=== PATIENT | female | born 1945 | race Caucasian/White ===

== ENCOUNTER 2019-10-17 09:58 | Outpatient (CLI) | payer MEDICARE, OTHER, SELFPAY ==
--- NOTE | ~2019-10-17 | XR_ITS ---
EXAMINATION: XR chest 2V DATE: 10/17/2019 11:05 INDICATION: Hypertension. Preop. TECHNIQUE: Frontal and lateral views of the chest were obtained. COMPARISON: None. FINDINGS: The chest demonstrates clear lungs without pneumonia, pleural effusion, or pneumothorax. Th e heart size is normal. Surgical clips in the right upper quadrant are likely from cholecystectomy. T here is a compression fracture in mid thoracic spine, likely chronic. IMPRESSION: 1. No acute cardiopulmonary disease. Reviewed, dictated and finalized at location B.
--- NOTE | 2019-10-17 10:40 | ECG_ITS ---
Measurements Intervals [place] Rate: 60 P: 36 CA: 182 QRS: 4 QRSD: 102 T: 34 QT: 432 QTc: 432 Interpretive Statements SINUS RHYTHM BORDERLINE R WAVE PROGRESSION, ANTERIOR LEADS BASELINE ARTIFACT- I, II, III, AVR, AVL, AVF BORDERLINE ECG Electronically Signed On 10-17-2019 11:20:08 CDT by Stanley Dyer D.O.
[2019-10-17 11:14] LABS: Basophils Absolute Auto 0.1 K/mm3 (0.0-0.1); Basophils Percent Auto 0.9 % (0.2-1.2); Eosinophils Absolute Auto 0.2 K/mm3 (0-0.3); Eosinophils Percent Auto 3.3 % (0-4.4); Hematocrit 41.5 % (37.0-47.0); Hemoglobin 13.7 g/dL (12.0-15.0); Immature Granulocyte Absolute 0.02 K/mm3 (0.00-0.031); Immature Granulocyte Percent A 0.3 % (0-0.5); Lymphocytes Absolute Auto 1.74 K/mm3 (0.9-3.2); Lymphocytes Percent Auto 25.1 % (18.3-44.2); Mean Corpuscular Hemoglobin 28.8 pg (26-34); Mean Corpuscular Volume 87.4 fl (80-100); Mean Platelet Volume 10.3 fl (7.4-10.4); Monocytes Absolute Auto 0.6 K/mm3 (0.1-0.6); Monocytes Percent Auto 9.2 % (2.6-8.5); Neutrophils Absolute Auto 4.2 K/mm3 (1.3-6.7); Neutrophils Percent Auto 61.2 % (45.5-73.1); Platelet Count Result 285 k/mm3 (150-375); Red Blood Count 4.75 M/mm3 (4.2-5.4); Red Cell Distribution Width 13.2 % (11.5-14.5); White Blood Count 6.9 K/mm3 (4.5-10.0)
[2019-10-17 11:23] LABS: Albumin Level 4.5 g/dL (3.5-5.1); Anion Gap 9 mmol/L (8-16); Blood Urea Nitrogen 18 mg/dL (7-17); Calcium 9.4 mg/dL (8.4-10.2); Carbon Dioxide 32 mmol/L (22-30); Chloride 93 mmol/L (98-107); Estimated Glomerular Filt Rate > 60; Glucose 114 mg/dL (65-105); Potassium 3.2 mmol/L (3.4-5.0); Sodium 134 mmol/L (137-145)
[2019-10-17 11:34] LABS: Urine Cotinine NEGATIVE
== END 2019-10-17 09:59 | disposition home or self-care (01) ==
PROVIDERS: PCP Family Medicine; Visit Provider Orthopaedic Surgery
DX: M19.90 Unspecified osteoarthritis, unspecified site (principal); Z01.818 Encounter for other preprocedural examination; I10 Essential (primary) hypertension; E87.6 Hypokalemia
CPT/HCPCS: 71046; 80048; 80307; 82040; 83036; 85025; 87070; 93005

== ENCOUNTER 2019-11-02 00:24 | Outpatient (CLI) | payer MEDICARE, OTHER, SELFPAY ==
[2019-11-03 13:40] LABS: SARS-CoV-2 RNA PCR Negative
== END 2019-11-02 00:25 | disposition home or self-care (01) ==
LOC: ANHCOVIDDT 00:24
PROVIDERS: PCP Family Medicine; Visit Provider Orthopaedic Surgery
DX: Z01.812 Encounter for preprocedural laboratory examination (principal); Z11.59 Encounter for screening for other viral diseases
CPT/HCPCS: 87635; C9803; U0003

== ENCOUNTER 2019-11-02 08:33 | Outpatient (CLI) | payer MEDICARE, OTHER, SELFPAY ==
[2019-11-02 09:19] LABS: Anion Gap 10 mmol/L (8-16); Blood Urea Nitrogen 19 mg/dL (7-17); Calcium 9.5 mg/dL (8.4-10.2); Carbon Dioxide 27 mmol/L (22-30); Chloride 100 mmol/L (98-107); Estimated Glomerular Filt Rate > 60; Glucose 130 mg/dL (65-105); Potassium 3.6 mmol/L (3.4-5.0); Sodium 137 mmol/L (137-145)
== END 2019-11-02 08:34 | disposition home or self-care (01) ==
LOC: ANHLAB 08:35
PROVIDERS: PCP Family Medicine; Visit Provider Family Medicine
DX: E87.6 Hypokalemia (principal)
CPT/HCPCS: 36415; 80048; 87635; C9803; U0003

== ENCOUNTER 2019-11-05 01:25 | Day surgery (SDC) | payer MEDICARE, OTHER, SELFPAY ==
[2019-10-17 10:09] VITALS: BP 143/69; PULSE 66; RESP 16; TEMP 36.7; O2SAT 96; BMI 36.4
--- NOTE | 2019-11-02 08:59 | PM.IMHP ---
H&P: HPI History of Present Illness Date/Time: 11/02/19 08:59 <SUE Brody - Last Filed: 11/02/19 09:06> Chief complaint: Severe OA Right Knee <SUE Brody - Last Filed: 11/02/19 09:06> Narrative: Karen King is a 74 year old female Of who presents today for a right total knee arthroplasty. She is having pain in this knee for years. Both her knees bother her regularly but the right is worse than the left with regard to the pain. She has tried taking anti-inflammatories, Aleve, as well as had had injections in the past. She has reached a point where her symptoms are rather severe on a daily basis and she would rather proceed with total knee arthroplasty rather continue nonsurgical treatment. <SUE Brody - Last Filed: 11/02/19 09:06> [facility] Past Medical History Medical History: Medical History Breast cancer Essential (primary) hypertension Nonrheumatic mitral (valve) insufficiency Scarring of lung <SUE Brody - Last Filed: 11/02/19 09:06> Family History Family History: Family History Mother Family history of Alzheimer's disease Father Family history of diabetes mellitus in first degree relative Patient's father is Acute myocardial infarction Diabetes mellitus Family history of cardiovascular disease <SUE Brody - Last Filed: 11/02/19 09:06> Social History Social History: Social History Smoking status: Never smoker Alcohol intake: never Living arrangements: with family Spiritual care concerns: No <SUE Brody - Last Filed: 11/02/19 09:06> Meds Home Medications and Allergies Home medications: Home Medications Medication Instructions Recorded Confirmed Type anastrozole 1 mg PO HS 10/17/19 11/05/19 History atenolol 50 mg PO HS 10/17/19 11/05/19 History cholecalciferol (vitamin D3) 50 mcg PO HS 10/17/19 11/05/19 History [Vitamin D3] furosemide 40 mg PO HS 10/17/19 11/05/19 History naproxen sodium [Aleve] 220 mg PO BID PRN 10/17/19 11/05/19 History triamterene-hydrochlorothiazid 1 tablet PO HS 10/17/19 11/05/19 History potassium chloride 20 mEq 20 meq PO DAILY #60 tablet 10/22/19 10/22/19 Rx tablet,extended release <SUE Brody - Last Filed: 11/02/19 09:06> Allergies/Adverse reactions: Allergies Allergy/AdvReac Type Severity Reaction Status Date / Time ibuprofen Allergy Severe kidney Verified 11/05/19 06:26 shuts down <SUE Brody - Last Filed: 11/02/19 09:06> Exam Narrative: Exam Narrative: 74-year-old female very alert pleasant no distress. She is 5 ft 2 and 210 lb. Her right knee range of motion is from 18-90 degrees. Has no definite effusion right knee. She has severe medial joint line tenderness the right knee, lateral joint line tenderness is moderate, mild patellofemoral pain with grind. She has normal stability both AP and mediolateral in the knee. Hip range of motion is full without discomfort on the right. Stinchfield maneuver is negative. Normal quad strength, 2+ dorsalis pedis and posterior tibial pulse. No edema in either lower extremity. Skin is all normal. <SUE Brody - Last Filed: 11/02/19 09:06> HENMT: Head: normal to inspection <SUE Brody Last Filed: 11/02/19 09:06> Resp: Auscultation: clear to auscultation bilaterally <SUE Brody Last Filed: 11/02/19 09:06> Cardio: Rhythm: regular rhythm <SUE Brody Last Filed: 11/02/19 09:06> Assessment and Plan Additional Plan Patient has severe arthritis of the right knee with continued symptoms. Again she would like proceed with total knee arthroplasty. Surgical procedures well as the risks and complications were discussed all questions were answered and we wi
[2019-11-05] VITALS (13 sets, daily range): BP systolic 118–148; BP diastolic 52–72; PULSE 77–95; RESP 14–20; TEMP 36.1–37.3; O2SAT 93–99; BMI 36.0
--- NOTE | ~2019-11-05 | XR_ITS ---
EXAMINATION: XR knee RT 2V DATE: 11/05/2019 11:11 CDT INDICATION: Right total knee arthroplasty TECHNIQUE: 2 views right knee FINDINGS: There is a right total knee arthroplasty in expected position. Subcutaneous gas with fluid and air in the joint and overlying skin garrison are consistent with recent surgery. No evidence of p eriprosthetic fracture. IMPRESSION: 1. Recent right total knee arthroplasty. Reviewed, dictated and finalized at location B.
--- NOTE | 2019-11-05 07:07 | WPDANESEPPF ---
Anes - Initial Pre Proc Eval Procedure: Operation Date: 11/05/19 07:30 Proposed Procedures p Right Total Knee Arthroplasty - Keyon Monroe MD Date/Time: 11/05/19 07:07 Surgeon: Keyon Monroe MD Pre Op Diagnosis: Severe OA Right Knee Patient Data Age: 74 Gender: F Height: 5 ft 4 in Weight: 95.3 kg Last Vital Signs Temp 36.7 C 10/17/19 10:09 Pulse 66 10/17/19 10:09 Resp 16 10/17/19 10:09 BP 143/69 H 10/17/19 10:09 Pulse Ox 96 10/17/19 10:09 Allergies Allergy/AdvReac Type Severity Reaction Status Date / Time ibuprofen Allergy Severe kidney Verified 11/05/19 06:26 shuts down Home Medications Medication Instructions Recorded Confirmed Type anastrozole 1 mg PO HS 10/17/19 11/05/19 History atenolol 50 mg PO HS 10/17/19 11/05/19 History cholecalciferol (vitamin D3) 50 mcg PO HS 10/17/19 11/05/19 History [Vitamin D3] furosemide 40 mg PO HS 10/17/19 11/05/19 History naproxen sodium [Aleve] 220 mg PO BID PRN 10/17/19 11/05/19 History triamterene-hydrochlorothiazid 1 tablet PO HS 10/17/19 11/05/19 History potassium chloride 20 mEq 20 meq PO DAILY #60 tablet 10/22/19 10/22/19 Rx tablet,extended release Patient hx anesthesia problems: post op nausea/vomiting Family hx anesthesia problems: none PMFSH Past Medical History Medical History Breast cancer Essential (primary) hypertension Nonrheumatic mitral (valve) insufficiency Scarring of lung Family History Family History Mother Family history of Alzheimer's disease Father Family history of diabetes mellitus in first degree relative Patient's father is Acute myocardial infarction Diabetes mellitus Family history of cardiovascular disease Social History Social History Smoking status: Never smoker Alcohol intake: never Living arrangements: with family Spiritual care concerns: No Anes - Eval Final PreProcedure Day of Procedure 11/05/19 07:07 Patient weight: obese Heart: regular rate and rhythm Lungs: clear to auscultation Airway: Mallampati scale class II Neurological: alert and oriented Last oral intake: >/= 8 hours ASA classification: III Emergent: no Anesthetic plan: proceed Anesthesia type and monitoring: general LMA and standard monitoring Informed Consent: The patient's anesthetic plan and its attendant risks and benefits were discussed with the patient/family/POA. Questions were solicited and answers provided to the satisfaction of the patient/family/POA.
[2019-11-05] MEDS: LACTATED RINGERS 1,000 ML 30 ML IV CONT (07:14)
[2019-11-05] MEDS: TRANEXAMIC ACID 1,000MG/ISO100 1,000 MG/100 ML BAG 200 MG IVPB (07:15)
[2019-11-05] MEDS: ACETAMINOPHEN 500 MG TABLET 1000 MG PO ×3 (07:15→18:46)
--- NOTE | 2019-11-05 07:17 | WPDHPUPDATE1 ---
History and Physical Update Update Date/Time: 11/05/19 07:17 History and Physical has been reviewed, including an updated exam of the patient. There are NO changes in the patient's condition. Risks, benefits, and alternatives have been discussed and questions answered. Patient agrees to proceed with procedure.
[2019-11-05] MEDS: KETOROLAC 15 MG/ML VIAL (*BKC) IV PUSH (07:21)
[2019-11-05] MEDS: ceFAZolin 2 GM/D5W 50 ML 2 GM/50 ML BAG IVPB (07:48)
[2019-11-05] MEDS: GENTAMICIN BONE CEMENT REFOBACIN 1 EACH TOPICAL (07:54)
--- NOTE | 2019-11-05 07:54 | SUR.PREOP ---
0718; DR BURKETT ORDERED IV TORADOL. STATES HE IS AWARE OF IBUPROFEN ALLERGY, IT WAS A TAKEN TO MUCH SITUATION .
[2019-11-05] MEDS: ceFAZolin SODIUM 1 GM VIAL 3 GM IRRIGATION (07:55)
[2019-11-05] MEDS: ceFAZolin SODIUM 1 GM VIAL IV PUSH (09:43)
[2019-11-05] MEDS: TRANEXAMIC ACID 1,000 MG/10 ML AMPUL 1000 MG IV PUSH (09:45)
--- NOTE | 2019-11-05 10:21 | PM.PROC ---
Procedure Note - Detailed Date of procedure: 11/05/19 Pre-op diagnosis: Severe OA Right Knee Post-op diagnosis: same Procedure performed: Right total knee arthroplasty Description of procedure: Patient was brought to the operating room and general anesthesia was administered. She received 2 g of Ancef weight based vancomycin 1 g of tranexamic acid IV preoperatively. The right leg was prepped draped usual fashion. Under anesthesia she had of flexion contracture between 15 and 18? and she flexed to 100 passively. Her BMI is 38.4 and because of her obesity and stiffness this added extra difficulty to the procedure accounting for approximately 40 minutes of surgical time. Limb was exsanguinated and tourniquet elevated to 300 mmHg. A 7 in longitudinal incision was made and a vastus medialis splitting approach utilized. Infrapatellar and suprapatellar fat pads were excised the quadriceps synovectomy carried out. Suprapatellar synovial reflections were released to mobilize the quadriceps. The patella measured 22 mm in thickness and was cut to 16 mm osteophytes removed. A protector cap applied. A guide hannah was inserted on femoral canal after aspiration of canal contents using the 5 degree valgus cutting bushing 11 mm of bone removed the distal femur. Next the tibial plateau was cut and we made a skim cut off the sclerotic portion of the medial tibial plateau which removed about 7 or 8 mm laterally. Meniscal remnants were excised and the PCL recessed from the femur. Osteophytes from the posterior medial femoral condyle were removed. The medial side was a tight 8 mm at 90? of flexion lateral side 12 mm. The femoral sizing guide was set at 5? of external rotation which matched [place]ites[place] line exactly. Posterior referencing pin holes were placed. The 62.5 was going to notch. We applied the 65 cutting block and AP and chamfer cuts were made. The 65 trial overhung mm medial and mm lateral. Next the tibia was sized to a size 67. The size 71 would not allow us proper rotation without overhang anteromedially. The 67 tray was pinned the tibia in the proper rotation referenced off medial 1/3 of the tibial tubercle the anterior cortex of the tibia and the 2nd metatarsal. Alignment was confirmed to be perpendicular to the axis of the tibia. The tibia was punched. We removed posteromedial tibial osteophyte at this time and did enough capsule released from the tibia to allow removal of the tibial osteophyte but that is all. We trialed and with the 10 mm insert, the knee lacked about 10? of extension with the tourniquet up and had a little bit of play anterior drawer with the 10 mm insert at 90?. Prior to this I had done a central posterior femoral capsule release and removed the large posterior medial femoral condylar osteophyte which was loose. We removed 2 additional mm of bone from the distal femur at this time. I put a little bit of flexion on the cut also so that the 62.5 femur cutting block could be used without significant notching. AP and chamfer cuts revisited with the 62.5 cutting block. This did not result in any significant notching. There was an excellent fit without overhang on the 62.5 this time. We trialed with the 11 and we still lacked about 4 5? but the tourniquet on the thigh held the femur pushed up into flexion such that it was difficult to assess whether we had a positive bounce test. I lowered the tourniquet and with the thigh in a more horizontal position now we confirmed that there was still a positive bounce test and removed the trial components and we released the posterior femoral capsule medially and laterally up to the medial and lateral insertions of the gastrocnemius. We we placed the trial components and the knee came out to full extension with a negative bounce 2 mm each medial and lateral opening and appropriate stability at 90?. Lug holes in the femur were drilled. The patella was sized to a 31 thin composite patellar thickness was 22 mm
[2019-11-05] MEDS: SODIUM CHLORIDE 0.9% IV 1,000 ML 125 ML IV CONT (12:48)
[2019-11-05] MEDS: SENNA/DOCUSATE SODIUM TABLET 2 TAB PO (16:35)
[2019-11-05] MEDS: APIXABAN 2.5 MG TABLET PO (20:51)
[2019-11-05] MEDS: CHOLECALCIFEROL 1,000 UNITS TABLET 2000 UNITS PO (20:53)
[2019-11-05] MEDS: FAMOTIDINE 20 MG TABLET PO (20:53)
[2019-11-05] MEDS: TRIAMTERENE 37.5 MG/HCTZ 25 MG (MAXZIDE) TABLET 1 TAB PO (20:54)
[2019-11-05] MEDS: atenoloL 50 MG TABLET PO (21:03)
[2019-11-06] MEDS: ACETAMINOPHEN 500 MG TABLET 1000 MG PO ×2 (00:31→06:39)
[2019-11-06 01:38] VITALS: BP 103/50; PULSE 78; RESP 20; TEMP 36.6; O2SAT 96
[2019-11-06 05:29] VITALS: BP 104/49; PULSE 78; RESP 20; TEMP 36.6; O2SAT 96
[2019-11-06 05:45] LABS: Anion Gap 6 mmol/L (8-16); Blood Urea Nitrogen 20 mg/dL (7-17); Calcium 8.5 mg/dL (8.4-10.2); Carbon Dioxide 28 mmol/L (22-30); Chloride 96 mmol/L (98-107); Estimated CRCL calculation 55 ml/min; Estimated Glomerular Filt Rate > 60; Glucose 114 mg/dL (65-105); Potassium 3.5 mmol/L (3.4-5.0); Sodium 130 mmol/L (137-145)
[2019-11-06 06:32] LABS: Basophils Percent Auto 0.2 % (0.2-1.2); Eosinophils Percent Auto 0.1 % (0-4.4); Hematocrit 31.1 % (37.0-47.0); Hemoglobin 10.3 g/dL (12.0-15.0); Immature Granulocyte Absolute 0.06 K/mm3 (0.00-0.031); Immature Granulocyte Percent A 0.5 % (0-0.5); Lymphocytes Absolute Auto 1.41 K/mm3 (0.9-3.2); Lymphocytes Percent Auto 11.3 % (18.3-44.2); Mean Corpuscular HGB Conc 33.1 g/dl (32-36); Mean Corpuscular Hemoglobin 28.9 pg (26-34); Mean Corpuscular Volume 87.4 fl (80-100); Monocytes Absolute Auto 1.3 K/mm3 (0.1-0.6); Monocytes Percent Auto 10.3 % (2.6-8.5); Neutrophils Absolute Auto 9.7 K/mm3 (1.3-6.7); Neutrophils Percent Auto 77.6 % (45.5-73.1); Platelet Count Result 241 k/mm3 (150-375); Red Blood Count 3.56 M/mm3 (4.2-5.4); Red Cell Distribution Width 13.2 % (11.5-14.5); White Blood Count 12.5 K/mm3 (4.5-10.0)
--- NOTE | 2019-11-06 06:40 | PM.PNORT ---
Progress Note: A&P Additional Plan Postop day 1 patient is doing very well. She is having limited pain. She is afebrile vitals signs Have been stable. wound is dry, dressing is intact. She has been up walking with physical therapy yesterday very comfortable with that. She does have her heel lift left shoe is ambulating. Patient has done very well and is anxious to go home today. Will have her do therapy session discharge her after Subjective Subjective Date/Time Seen: 11/06/19 06:40 Objective Data Vital Signs Vital Signs: Vital Signs - 24 hr 11/05/19 06:45 11/05/19 10:46 11/05/19 11:00 Temperature 37.0 C 36.2 C L Pulse Rate 80 81 77 Respiratory Rate 18 14 16 Blood Pressure 148/68 H 129/64 131/69 Pulse Oximetry 97 96 99 11/05/19 11:15 11/05/19 11:30 11/05/19 11:45 Temperature 36.1 C L Pulse Rate 80 77 79 Respiratory Rate 18 16 14 Blood Pressure 133/72 136/71 128/70 Pulse Oximetry 99 95 93 11/05/19 12:20 11/05/19 12:35 11/05/19 13:05 Temperature 36.6 C 36.5 C 36.6 C Pulse Rate 79 78 82 Respiratory Rate 16 17 17 Blood Pressure 120/58 L 136/52 L 127/63 Pulse Oximetry 95 96 95 11/05/19 14:05 11/05/19 18:00 11/05/19 21:03 Temperature 36.6 C 37.3 C Pulse Rate 85 95 88 Respiratory Rate 18 18 Blood Pressure 131/64 118/54 L Pulse Oximetry 96 97 11/05/19 21:38 11/06/19 01:38 11/06/19 05:29 Temperature 36.7 C 36.6 C 36.6 C Pulse Rate 90 78 78 Respiratory Rate 20 20 20 Blood Pressure 123/67 103/50 L 104/49 L Pulse Oximetry 95 96 96 Intake/Output Intake/Output: Intake & Output 11/03/19 11/04/19 11/05/19 11/06/19 23:59 23:59 23:59 23:59 Intake Total 2771 50 Output Total 250 1100 Balance 2521 -1050 Meds/Results Medications: Active Medications Generic Name Dose Route Start Last Admin Trade Name Freq PRN Reason Stop Dose Admin Acetaminophen 1,000 mg 11/05/19 13:00 11/06/19 06:39 Tylenol Tablet PO 1,000 mg Q6H MEL Administration Apixaban 2.5 mg 11/05/19 21:00 11/05/19 20:51 Eliquis PO 11/17/19 09:01 2.5 mg Q12HR MEL Administration Atenolol 50 mg 11/05/19 21:00 11/05/19 21:03 Tenormin PO 50 mg HS MEL Administration Bisacodyl 10 mg 11/05/19 11:53 Dulcolax Suppository RECTAL DAILY PRN Constipation Celecoxib 100 mg 11/06/19 08:00 Celebrex PO DAILY@0800 MEL Diphenhydramine HCl 25 mg 11/05/19 11:53 Benadryl Inj IV PUSH Q6H PRN Itching Famotidine 20 mg 11/05/19 21:00 11/05/19 20:53 Pepcid PO 20 mg Q12HR MEL Administration Furosemide 40 mg 11/05/19 21:00 11/05/19 21:08 Lasix Tablet PO Not Given HS MEL Vancomycin HCl 1,000 mg in 250 mls @ 250 mls/hr 11/05/19 19:00 11/06/19 06:39 Vancomycin 1,000 Mg/D5w 250 Ml IVPB 11/06/19 07:59 250 mls/hr Q12H MEL Administration Cefazolin Sodium 1 gm in 50 mls @ 100 mls/hr 11/05/19 16:00 11/06/19 00:27 Ancef 1 Gm/D5w 50 Ml Pm IVPB 11/06/19 08:29 Infused Q8H MEL Infusion Morphine Sulfate 2 mg 11/05/19 11:53 Morphine Sulfate Inj IV PUSH Q2H PRN Breakthrough pain rated 4-6 Naloxone HCl 0.1 mg 11/05/19 11:53 Narcan IV PUSH Q2M PRN Opiate Reversal Ondansetron HCl 4 mg 11/05/19 11:53 Zofran Inj IV PUSH Q4H PRN Nausea And Vomiting Oxycodone HCl 5 mg 11/05/19 13:00 11/06/19 05:19 Roxicodone Ir Tablet PO 5 mg Q4HR MEL Administration Oxycodone HCl 5 mg 11/05/19 11:53 Roxicodone Ir Tablet PO Q4H PRN Pain Rated 4-6 Polyethylene Glycol 17 gm 11/06/19 09:00 Miralax PO QAM MEL Senna/Docusate Sodium 2 tab 11/05/19 17:00 11/05/19 16:35 Senokot S Tablet PO 2 tab BID MEL Administration Triamterene/HCTZ 1 tab 11/05/19 21:00 11/05/19 20:54 Maxzide-25 PO 1 tab HS MEL Administration Vitamin D 2,000 units 11/05/19 21:00 11/05/19 20:53 Vitamin D PO 2,000 units HS MEL Administration Radiology Results:
--- NOTE | 2019-11-06 06:42 | PM.DS ---
DS: Admitting Diagnosis Admitting Diagnosis Admitting Diagnosis: Severe OA Right Knee DS: Summary Time Spent with Patient Time attestation: patient is a 74-year-old female patient who underwent right total knee arthroplasty by Dr. Monroe on 11/04. She underwent the procedure without any complications. Postoperatively she has been afebrile vital signs stable. Neurovascular she is intact, wound is dry has a Mepilex dressing over it. She is weight-bearing as tolerated. She is on Eliquis for 2 weeks followed by aspirin b.i.d. for DVT prophylaxis. She is on schedule Tylenol well as oxycodone 5 for pain control she is also on Celebrex 100 mg daily. she will be discharged to home on 11/05 cautious outpatient therapy starting on . She will also go on MiraLax and Senokot constipation. Patient was advised to keep leg elevated and swelling also do exercises a regular basis during the day. She was advised she had a very stiff knee prior to surgery and this is going need a lot of hard work with physical therapy exercises back and she is of that. Beatriz positive questions concerns she should Petterchak was seen appointment date. DS: Data Data Completed and Pending Labs on day of discharge: Labs from last 24 hours 11/06/19 11/06/19 11/05/19 06:12 05:16 07:04 WBC 12.5 H RBC 3.56 L Hgb 10.3 L D Hct 31.1 L MCV 87.4 MCH 28.9 MCHC 33.1 RDW 13.2 Plt Count 241 MPV 10.0 Immature Gran % (Auto) 0.5 Neut % (Auto) 77.6 H Lymph % (Auto) 11.3 L [place] % (Auto) 10.3 H Eos % (Auto) 0.1 Baso % (Auto) 0.2 Lymph # (Auto) 1.41 [place] # (Auto) 1.3 H Eos # (Auto) 0.0 Baso # (Auto) 0.0 Abs Immat Gran (auto) 0.06 H Absolute Neuts (auto) 9.7 H Absolute Nucleated RBC 0.0 Nucleated RBC % 0.0 Sodium 130 L Potassium 3.5 Chloride 96 L Carbon Dioxide 28 Anion Gap 6 L BUN 20 H Creatinine 0.90 Estim Creat Clear Calc 55 Estimated GFR > 60 Glucose 114 H Calcium 8.5 Blood Type A Negative Antibody Screen Negative Discharge Plan Discharge Patient Disposition: Home, Self-Care Patient Instructions: Apixaban (By mouth) Discharge Medications: No Action anastrozole 1 mg tablet 1 mg PO HS RF: 0 Hold Instructions: Total Knee Replacement naproxen sodium [Aleve] 220 mg Tablet 220 mg PO BID PRN (Reason: Pain) RF: 0 cholecalciferol (vitamin D3) [Vitamin D3] 50 mcg (2,000 unit) Capsule 50 mcg PO HS RF: 0 furosemide 40 mg tablet 40 mg PO HS RF: 0 atenolol 100 mg tablet 50 mg PO HS RF: 0 triamterene-hydrochlorothiazid 37.5-25 mg tablet 1 tablet PO HS RF: 0 potassium chloride 20 mEq tablet extended release 20 meq PO DAILY Qty: 60 RF: 1
[2019-11-06] MEDS: APIXABAN 2.5 MG TABLET PO (08:02)
[2019-11-06] MEDS: CELECOXIB 100 MG CAPSULE PO (08:02)
[2019-11-06] MEDS: FAMOTIDINE 20 MG TABLET PO (08:03)
[2019-11-06] MEDS: polyethylene glycoL 3350 17 GM POWD.PACK PO (08:03)
[2019-11-06] MEDS: SENNA/DOCUSATE SODIUM TABLET 2 TAB PO (08:04)
--- NOTE | 2019-11-06 09:19 | P.PNAN_ITS ---
Anes - Prog Note Post-Op Date/Time: 11/06/19 09:19 Cardiovascular status: normal Respiratory status: normal Airway patency: baseline Mental status: baseline Post-Op hydration status: normal Vital Signs: Last Vital Signs Temp 36.6 C 11/06/19 05:29 Pulse 78 11/06/19 05:29 Resp 20 11/06/19 05:29 BP 104/49 L 11/06/19 05:29 Pulse Ox 96 11/06/19 05:29 Pain Score (VAS): 0 I/O: Intake & Output 11/05/19 11/06/19 11/06/19 23:59 07:59 15:59 Intake Total 1221 300 240 Output Total 1100 Balance 1221 -800 240 Laboratory Tests 11/06/19 06:12 11/06/19 05:16 11/05/19 11/06/19 11/06/19 07:04 05:16 06:12 WBC 12.5 H RBC 3.56 L Hgb 10.3 L D Hct 31.1 L MCV 87.4 MCH 28.9 MCHC 33.1 RDW 13.2 Plt Count 241 MPV 10.0 Immature Gran % (Auto) 0.5 Neut % (Auto) 77.6 H Lymph % (Auto) 11.3 L [place] % (Auto) 10.3 H Eos % (Auto) 0.1 Baso % (Auto) 0.2 Lymph # (Auto) 1.41 [place] # (Auto) 1.3 H Eos # (Auto) 0.0 Baso # (Auto) 0.0 Abs Immat Gran (auto) 0.06 H Absolute Neuts (auto) 9.7 H Absolute Nucleated RBC 0.0 Nucleated RBC % 0.0 Sodium 130 L Potassium 3.5 Chloride 96 L Carbon Dioxide 28 Anion Gap 6 L BUN 20 H Creatinine 0.90 Estim Creat Clear Calc 55 Estimated GFR > 60 Glucose 114 H Calcium 8.5 Blood Type A Negative Antibody Screen Negative Post-procedural complaints: none Patient Feedback: Patient satisfied with anesthetic care.
[2019-11-06 10:00] VITALS: BP 102/44; PULSE 60; RESP 15; TEMP 37.1; O2SAT 98
[2019-11-06 10:29] VITALS: O2SAT 95
--- NOTE | 2019-11-06 10:30 | PC.NURSE ---
Patient declined flu shot at discharge
== END 2019-11-06 10:30 | disposition home or self-care (01) ==
LOC: ANHSURGERY 06:02 → ANH2MED 12:10
PROVIDERS: Physician Assistant Surgical; PCP Family Medicine; Visit Provider Orthopaedic Surgery
PROC: (CPT 27447; principal; 2019-11-05 07:30)
DX: M17.11 Unilateral primary osteoarthritis, right knee (principal); I10 Essential (primary) hypertension; I34.0 Nonrheumatic mitral (valve) insufficiency; Z85.3 Personal history of malignant neoplasm of breast; Z79.811 Long term (current) use of aromatase inhibitors; E66.9 Obesity, unspecified; Z68.36 Body mass index [BMI] 36.0-36.9, adult
CPT/HCPCS: 27447; 36415; 73560; 80048; 85025; 86850; 86900; 86901; 97110; 97116; 97161; 97165; 97530; A9270; C1713; C1776; J0171; J0690; J1100; J1170; J1885; J2250; J2270; J2405; J2704; J2795; J3010; J3370; J7030; J7120

== ENCOUNTER 2020-04-29 08:02 | Outpatient (CLI) | payer MEDICARE, OTHER, SELFPAY ==
[2020-04-29 10:15] LABS: Albumin Level 4.5 g/dL (3.5-5.1)
[2020-04-29 10:32] LABS: Hemoglobin A1C 5.5 % (<5.7)
[2020-04-29 12:00] LABS: Urine Cotinine NEGATIVE
== END 2020-04-29 08:03 | disposition home or self-care (01) ==
LOC: ANHSURGERY 08:04
PROVIDERS: PCP Family Medicine; Visit Provider Orthopaedic Surgery
DX: M17.12 Unilateral primary osteoarthritis, left knee (principal); Z01.812 Encounter for preprocedural laboratory examination
CPT/HCPCS: 80307; 82040; 83036; 87070

== ENCOUNTER → 2020-05-10 01:06 | Outpatient (CLI) | payer MEDICARE, OTHER, SELFPAY ==
[2020-05-10 19:13] LABS: SARS-CoV-2 RNA PCR Negative
== END ==
PROVIDERS: PCP Family Medicine; Visit Provider Orthopaedic Surgery
DX: Z01.812 Encounter for preprocedural laboratory examination (principal); Z20.822 Contact with and (suspected) exposure to COVID-19
CPT/HCPCS: C9803; U0003; U0005

== ENCOUNTER 2020-05-14 02:46 | Day surgery (SDC) | payer MEDICARE, OTHER, SELFPAY ==
[2020-04-29 08:20] VITALS: BP 130/67; PULSE 64; RESP 16; TEMP 36.7; O2SAT 94; BMI 34.7
--- NOTE | 2020-05-12 12:04 | PM.IMHP ---
H&P: HPI History of Present Illness Date/Time: 05/12/20 12:04 74 y/o patient of Dr. Alves.She presents today for a left total knee arthroplasty. Patient underwent right total knee arthroplasty last October. She is very happy with her results. Her left knee continues to be very problematic and painful for her. She does have [id number] arthritis in the medial compartment of left knee. She has a flexion contracture with minimal flexion as well. She feels that she has recovered well from the right total knee and is ready proceed with the left. <SUE Brody - Last Filed: 05/12/20 12:09> Chief Complaint: Left knee DJD <SUE Brody - Last Filed: 05/12/20 12:09> Review of Systems Review of Systems: All systems reviewed & are unremarkable except as noted in HPI and below <SUE Brody - Last Filed: 05/12/20 12:09> [facility] Past Medical History Medical History: Medical History Breast cancer Essential (primary) hypertension Nonrheumatic mitral (valve) insufficiency Scarring of lung <SUE Brody - Last Filed: 05/12/20 12:09> Surgical History Surgical History: Surgical History (Updated 05/14/20 @ 08:30 by Barrera Mejia DO) H/O total knee replacement History of cholecystectomy History of hysterectomy <SUE Brody - Last Filed: 05/12/20 12:09> Family History Family History: Family History Mother Family history of Alzheimer's disease Father Family history of diabetes mellitus in first degree relative Patient's father is Acute myocardial infarction Diabetes mellitus Family history of cardiovascular disease <SUE Brody - Last Filed: 05/12/20 12:09> Social History Social History: Social History Smoking status: Never smoker Second hand tobacco smoke exposure: Yes (father was a smoker) Alcohol intake: never Substance use: never Living arrangements: with family Additional living arrangements comments: [facility]ILDR[facility] Gender identity (if verbalized by the patient): Female Spiritual care concerns: No <SUE Brody - Last Filed: 05/12/20 12:09> Meds Home Medications and Allergies Home medications: Home Medications Medication Instructions Recorded Confirmed Type atenolol 50 mg PO HS 10/17/19 05/14/20 History cholecalciferol (vitamin D3) 50 mcg PO HS 10/17/19 05/14/20 History [Vitamin D3] furosemide 40 mg PO HS PRN 10/17/19 05/14/20 History triamterene-hydrochlorothiazid 1 tablet PO HS 10/17/19 05/14/20 History acetaminophen 1,000 mg PO Q6H PRN 04/29/20 05/14/20 History naproxen sodium [Aleve] 440 mg PO BID PRN 04/29/20 05/14/20 History potassium chloride 20 meq PO DAILY PRN 04/29/20 05/14/20 History <SUE Brody - Last Filed: 05/12/20 12:09> Allergies/Adverse reactions: Allergies Allergy/AdvReac Type Severity Reaction Status Date / Time ibuprofen AdvReac Severe kidney Verified 05/14/20 10:26 shut down 1997 <SUE Brody - Last Filed: 05/12/20 12:09> Exam Narrative: Exam Narrative: 74-year-old female very alert pleasant. She is 5 ft 2 in and 210 lb. Her left knee range of motion is from 15-90 degrees. There is no effusion. Moderately severe tenderness over the medial joint line. Normal AP and mediolateral stability. Hip range motion is full without discomfort negative Stinchfield maneuver. Normal quad strength. 2+ dorsalis pedis and posterior tibial pulse. Normal sensation left lower extremity. <SUE Brody - Last Filed: 05/12/20 12:09> Resp: Auscultation: clear to auscultation bilaterally <SUE Brody Last Filed: 05/12/20 12:09> Cardio: Rate: regular rate <SUE Brody Last Filed: 05/12/20 12:09> Rhythm: regular rhythm <SUE Brody - Last Filed:
[2020-05-14] VITALS (15 sets, daily range): BP systolic 127–148; BP diastolic 60–77; PULSE 66–103; RESP 14–18; TEMP 36.1–36.7; O2SAT 94–100
--- NOTE | ~2020-05-14 | XR_ITS ---
EXAMINATION: XR knee LT 2V DATE: 05/14/2020 16:44 INDICATION: Postoperative evaluation following left total knee arthroplasty. TECHNIQUE: Anteroposterior and lateral views of the left knee were obtained. COMPARISON: None. FINDINGS: Left total knee arthroplasty with patellar resurfacing appears well seated and in near anatomic align ment. No fractures identified. Skin expected postoperative subcutaneous and intra-articular gas. IMPRESSION: 1. Left total knee arthroplasty, negative for postoperative purposes. Reviewed, dictated and finalized at location A.
--- NOTE | 2020-05-14 08:29 | WPDANESEPPF ---
Anes - Initial Pre Proc Eval Procedure: Operation Date: 05/14/20 12:00 Proposed Procedures p Left Total Knee Arthroplasty - Keyon Monroe MD Date/Time: 05/14/20 08:29 Surgeon: Keyon Monroe MD Pre Op Diagnosis: OA Left Knee Patient Data Age: 74 Gender: F Height: 1.63 m Weight: 91.8 kg Last Vital Signs Temp 36.7 C 04/29/20 08:20 Pulse 64 04/29/20 08:20 Resp 16 04/29/20 08:20 BP 130/67 04/29/20 08:20 Pulse Ox 94 04/29/20 08:20 Allergies Allergy/AdvReac Type Severity Reaction Status Date / Time ibuprofen AdvReac Severe kidney Verified 05/14/20 10:26 shut down 1997 Home Medications Medication Instructions Recorded Confirmed Type atenolol 50 mg PO HS 10/17/19 05/14/20 History cholecalciferol (vitamin D3) 50 mcg PO HS 10/17/19 05/14/20 History [Vitamin D3] furosemide 40 mg PO HS PRN 10/17/19 05/14/20 History triamterene-hydrochlorothiazid 1 tablet PO HS 10/17/19 05/14/20 History acetaminophen 1,000 mg PO Q6H PRN 04/29/20 05/14/20 History naproxen sodium [Aleve] 440 mg PO BID PRN 04/29/20 05/14/20 History potassium chloride 20 meq PO DAILY PRN 04/29/20 05/14/20 History Patient hx anesthesia problems: none Family hx anesthesia problems: none PMFSH Past Medical History Medical History Breast cancer Essential (primary) hypertension Nonrheumatic mitral (valve) insufficiency Scarring of lung Surgical History Surgical History (Updated 05/14/20 @ 08:30 by Barrera Mejia DO) H/O total knee replacement History of cholecystectomy History of hysterectomy Family History Family History Mother Family history of Alzheimer's disease Father Family history of diabetes mellitus in first degree relative Patient's father is Acute myocardial infarction Diabetes mellitus Family history of cardiovascular disease Social History Social History (Reviewed 05/12/20 @ 12:06 by LAZARUS Brody Smoking status: Never smoker Second hand tobacco smoke exposure: Yes (father was a smoker) Alcohol intake: never Substance use: never Living arrangements: with family Additional living arrangements comments: GROWN CHILDREN Gender identity (if verbalized by the patient): Female Spiritual care concerns: No Anes - Eval Final PreProcedure Day of Procedure 05/14/20 08:29 Patient weight: obese Heart: regular rate and rhythm Lungs: clear to auscultation and normal air movement Airway: Mallampati scale class II Neurological: alert and oriented Last oral intake: >/= 8 hours ASA classification: III Emergent: no Anesthetic plan: proceed Anesthesia type and monitoring: general ETT and standard monitoring Informed Consent: The patient's anesthetic plan and its attendant risks and benefits were discussed with the patient/family/POA. Questions were solicited and answers provided to the satisfaction of the patient/family/POA.
[2020-05-14] MEDS: ACETAMINOPHEN 500 MG TABLET 1000 MG PO ×2 (10:40→23:19)
[2020-05-14] MEDS: LACTATED RINGERS 1,000 ML 30 ML IV CONT ×2 (10:45→16:30)
[2020-05-14] MEDS: TRANEXAMIC ACID 1,000MG/ISO100 1,000 MG/100 ML BAG 200 MG IVPB (10:45)
--- NOTE | 2020-05-14 12:03 | WPDHPUPDATE1 ---
History and Physical Update Update Date/Time: 05/14/20 12:03 History and Physical has been reviewed, including an updated exam of the patient. There are NO changes in the patient's condition. Risks, benefits, and alternatives have been discussed and questions answered. Patient agrees to proceed with procedure.
[2020-05-14] MEDS: ceFAZolin 2 GM/D5W 50 ML 2 GM/50 ML BAG IVPB (12:12)
[2020-05-14] MEDS: ceFAZolin SODIUM 1 GM VIAL 3 GM IRRIGATION (13:02)
[2020-05-14] MEDS: GENTAMICIN BONE CEMENT REFOBACIN 1 EACH TOPICAL (14:30)
[2020-05-14] MEDS: ceFAZolin SODIUM 1 GM VIAL IV PUSH (15:24)
[2020-05-14] MEDS: TRANEXAMIC ACID 1,000 MG/10 ML AMPUL 1000 MG IV PUSH (15:24)
--- NOTE | 2020-05-14 16:33 | PM.PROC ---
Procedure Note - Detailed Date of procedure: 05/14/20 Pre-op diagnosis: OA Left Knee Post-op diagnosis: same Procedure performed: Left total knee arthroplasty there was extra difficulty with the procedure due to her obesity and pronounced stiffness in the knee. Description of procedure: Patient was brought to the operating room and general anesthesia was administered the right knee prepped draped usual fashion. Even under anesthesia she had at least a 15 degree flexion contracture and only bent to 90?. She received 2 g of Ancef weight based vancomycin 1 g of tranexamic acid preoperatively. The right leg was prepped draped usual fashion. Limb was exsanguinated tourniquet elevated to 300 mmHg. We had some bleeding through as she is somewhat hypertensive so we increased the tourniquet to 325. An 8 in longitudinal midline incision was used and a standard parapatellar arthrotomy was utilized as her flexion was so limited. The patella had some arthritic changes. It measured 22 mm in thickness was cut to 16 mm. Bone quality was good. Protector cap applied. A guide hannah was inserted down the femoral canal for aspiration of canal contents using the 5 degree valgus cutting bushing 10 mm of bone removed the distal femur. Next the tibial plateau was cut. We found that the stiffness in the knee prevented adequate anterior is a nina of the tibia for visualization show a made a preliminary cut and saw that we needed another 3 mm to get to the base of the area of where the posteromedial aspect of the medial femoral condyle. With this cut completed we had a cut perpendicular to the axis of the tibia. Meniscal remnants were excised and PCL released. Anteromedial osteophytes removed the tibia. The knee was significantly tighter medially and then laterally in extension. At 90? of flexion the knee accepted an 8 mm insert medially that was quite tight and 16 mm on the lateral side where she was apparently quite stretched out. We set the femoral sizing guide to 5? external rotation which matched Whitesides line and AP and chamfer cuts were made for the size 65 which we could tell was a little bit too wide. On trialing the medial side was still firm a tighter than the lateral side. The tibia was sized to a size 67 which was rotated appropriately referenced off the medial 1/3 of the tibial tubercle 2nd metatarsal and anterior cortex of the tibial plateau. This was punched and we trialed with the 10 insert which was a little bit too loose in flexion extension. We trialed with the 12 insert and this was excessively tight medially at 90? with the [place] elevator able to be passed on the lateral side at 90?. Extension was close to ideal. There was some 1 or 2 mm of medial and lateral play little bit more laterally in extension. I felt that the excessive tightness at 90? in the medial side of the joint would not be acceptable. We applied the 62.5 cutting block removing the insertion pin on the medial side to allow us to externally rotate the cutting block little bit more so that we would shaved off additional mm half off the posterior aspect the medial femoral condyle and this cut was made without any notching and we used the threaded pins to stabilize the blocking made all the cuts then again for the 62.5 and this fit nicely line to line medius lateral anterior to posterior. We trialed again and this time the 12 was just a little bit loose in flexion but had much better medial to lateral balance and came to full extension after a central posterior capsule release performed earlier. We trialed with a 13 which had optimal stability at 90? with minimal anterior drawer and 1 mm medial to mm lateral opening and it lacked a few degrees of extension with no play medially or laterally. Therefore additional mm of bone was removed the distal femur chamfer cuts revisited and then trialing the knee now came out to full extension with a negative bounce. Lug holes in the femoral component were drilled.
[2020-05-14] MEDS: fentaNYL CITRATE INJ (*CRX) 100 MCG/2 ML VIAL 25 MCG IV PUSH ×4 (16:34→17:10)
--- NOTE | 2020-05-14 17:39 | ADMGEN ---
This patient, Karen King, was admitted to Medical Room 243-01. Patient/family oriented to hospital policies and general routines including ID bracelet, bed and alarms, visiting hours, pain management, procedures, bathroom and other care routines, personal items, smoking policy, room service/diet, and visiting hours. Information on how to activate the Rapid Response Team has been discussed. Patient/Family are encouraged to report perceived risks to care and to ask questions if they do not understand what they are told or what they should do.
[2020-05-14] MEDS: SODIUM CHLORIDE 0.9% IV 1,000 ML 125 ML IV CONT (18:19)
[2020-05-14] MEDS: oxyCODONE HCL (*CRX) 5 MG TAB IR PO ×2 (18:44→20:04)
[2020-05-14] MEDS: SENNA/DOCUSATE SODIUM TABLET 2 TAB PO (18:44)
[2020-05-14] MEDS: CHOLECALCIFEROL 1,000 UNITS TABLET 2000 UNITS PO (20:03)
[2020-05-14] MEDS: TRIAMTERENE 37.5 MG/HCTZ 25 MG (MAXZIDE) TABLET 1 TAB PO (20:04)
[2020-05-14] MEDS: atenoloL 50 MG TABLET PO (20:04)
--- NOTE | 2020-05-14 22:30 | WPDCN ---
Assessment and Plan Assessment and plan (1) Osteoarthritis of left knee: Code(s): M17.12 - Unilateral primary osteoarthritis, left knee Status: Acute Assessment and Plan: Postoperative day 0, status post left total knee arthroplasty. Wound care and pain control will be deferred to Dr. Monroe as well as DVT prophylaxis. (2) Essential hypertension: Code(s): I10 - Essential (primary) hypertension Status: Acute Assessment and Plan: Blood pressures were reviewed and they have been reasonable postoperatively. Continue antihypertensives and monitor daily. Additional Plan Thank you for allowing us to participate in this patient's care. Please do not hesitate to contact us with any questions. Supervising physician for this medical consultation is Dr. Cathy Nelson. HPI Data of Consult Date/Time: 05/14/20 22:30 Requesting Physician: Keyon Monroe MD Primary Care Provider: Viral Alves MD Consult Narrative Narrative: This is a 74-year-old female status post elective left total knee arthroplasty whom the hospitalist service has been consulted for management of her medical conditions postoperatively. Her medical history is significant for arthritis, hypertension, hyperlipidemia, and breast cancer. She has had pain in both of her knees for quite some time and in fact had her right knee replaced in October 2019 with good results. Unfortunately conservative outpatient treatment has not provide her with longstanding relief of her left knee pain and she elected for replacement today. Her surgery was performed under general anesthesia with no immediate complications documented and an estimated blood loss of 300 milliliters. Postoperatively her pain has been well controlled and she has been able to get up to the chair without issues. She denies paresthesias, skin color, temperature changes distal to the surgical site. She also denies postoperative fever, chills, chest pain, shortness of breath, nausea, and vomiting. Review of Systems Review of Systems: Narrative: Twelve systems were reviewed with pertinent positives and negatives as per HPI. No fever, chills, or sweats. She denies recent cold and flu symptoms. No sick contacts. She denies exposure to those positive for COVID-19. No chest pain or shortness of breath. She denies cough. No nausea, vomiting, or diarrhea. She believes her hypertension is well controlled on her home medications. She is a breast cancer survivor for many years. No personal or family history of venous thromboembolism. Except as documented, all other systems were reviewed and are negative. [facility] Past Medical History Medical History (Updated 05/14/20 @ 22:23 by Shayla Moran PA-C) Cancer of right breast Status post lumpectomy and chemoradiotherapy. Diverticulitis Essential hypertension Hyperlipidemia Irritable bowel syndrome Mitral valve prolapse Surgical History Surgical History (Updated 05/14/20 @ 22:23 by Shayla Moran PA-C) History of arthroplasty of left knee (~05/14/20) History of arthroplasty of right knee (~10/2019) History of arthroscopy of right knee History of cholecystectomy History of hysterectomy History of left breast biopsy Benign pathology. History of lumpectomy of right breast With lymph node sampling for breast cancer. History of repair of rotator cuff Bilateral. Family History Family History Mother Family history of Alzheimer's disease Father Family history of diabetes mellitus in first degree relative Patient's father is Acute myocardial infarction Diabetes mellitus Family history of cardiovascular disease Social History Social History (Updated 05/14/20 @ 23:39 by Shayla Moran PA-C) Social History: Surrogate decision maker: Carolynn Pritchett, daughter. Code status: Full code. Smoking status: Never smoker Second hand to
[2020-05-15] MEDS: oxyCODONE HCL (*CRX) 5 MG TAB IR PO ×4 (00:26→12:18)
[2020-05-15 03:14] VITALS: BP 115/65; PULSE 94; RESP 18; TEMP 36.1; O2SAT 96
[2020-05-15 05:59] LABS: Basophils Percent Auto 0.2 % (0.2-1.2); Hemoglobin 9.6 g/dL (12.0-15.0); Immature Granulocyte Absolute 0.04 K/mm3 (0.00-0.031); Immature Granulocyte Percent A 0.3 % (0-0.5); Lymphocytes Absolute Auto 0.81 K/mm3 (0.9-3.2); Lymphocytes Percent Auto 6.9 % (18.3-44.2); Mean Corpuscular Hemoglobin 26.9 pg (26-34); Mean Platelet Volume 9.9 fl (7.4-10.4); Monocytes Absolute Auto 0.9 K/mm3 (0.1-0.6); Monocytes Percent Auto 7.4 % (2.6-8.5); Neutrophils Percent Auto 85.2 % (45.5-73.1); Platelet Count Result 250 k/mm3 (150-375); Red Blood Count 3.57 M/mm3 (4.2-5.4); Red Cell Distribution Width 13.7 % (11.5-14.5); White Blood Count 11.8 K/mm3 (4.5-10.0)
[2020-05-15 06:07] LABS: Potassium 3.4 mmol/L (3.4-5.0)
[2020-05-15 06:17] LABS: Anion Gap 6 mmol/L (8-16); Blood Urea Nitrogen 13 mg/dL (7-17); Calcium 8.7 mg/dL (8.4-10.2); Carbon Dioxide 29 mmol/L (22-30); Chloride 96 mmol/L (98-107); Estimated CRCL calculation 54 ml/min; Estimated Glomerular Filt Rate > 60; Glucose 116 mg/dL (65-105); Magnesium 1.4 mg/dL (1.6-2.3); Sodium 131 mmol/L (137-145)
[2020-05-15] MEDS: ACETAMINOPHEN 500 MG TABLET 1000 MG PO ×2 (06:49→11:36)
--- NOTE | 2020-05-15 07:16 | PM.PNORT ---
Subjective Subjective Date/Time Seen: 05/15/20 07:16 POD 1 alert avss wd-dry NVI, pt is c/o of some numbness to left hand-first three fingers, noticed this when she woke from surg yesterday, sensation is better this am, able to feel light touch, most likely position during surg, wrist may have been extended, would imagine this will improve, will re-eval when seen in office, pt has been up to restroom several times last night , pain is well controlled. plan to have pt work with PT today then send home this afternoon, labs-noted Objective Data Vital Signs Vital Signs: Vital Signs - 24 hr 05/14/20 10:06 05/14/20 16:30 05/14/20 16:40 Temperature 36.3 C L 36.7 C Pulse Rate 66 89 86 Respiratory Rate 16 16 16 Blood Pressure 138/60 148/64 H 127/68 Pulse Oximetry 99 96 99 05/14/20 16:55 05/14/20 17:10 05/14/20 17:20 Temperature Pulse Rate 86 84 84 Respiratory Rate 14 14 14 Blood Pressure 146/75 H 142/77 H 140/73 Pulse Oximetry 94 98 98 05/14/20 17:27 05/14/20 17:40 05/14/20 17:55 Temperature 36.2 C L 36.2 C L Pulse Rate 83 83 91 Respiratory Rate 14 16 16 Blood Pressure 144/68 H 136/66 Pulse Oximetry 98 96 96 05/14/20 18:25 05/14/20 18:53 05/14/20 19:14 Temperature 36.2 C L 36.3 C L 36.1 C L Pulse Rate 88 87 92 Respiratory Rate 16 16 18 Blood Pressure 138/74 144/71 H 133/62 Pulse Oximetry 94 100 99 05/14/20 20:04 05/14/20 23:14 05/14/20 23:54 Temperature 36.2 C L Pulse Rate 92 103 H Respiratory Rate 16 Blood Pressure 148/72 H Pulse Oximetry 97 96 05/15/20 03:14 Temperature 36.1 C L Pulse Rate 94 Respiratory Rate 18 Blood Pressure 115/65 Pulse Oximetry 96 Intake/Output Intake/Output: Intake & Output 05/12/20 05/13/20 05/14/20 05/15/20 23:59 23:59 23:59 23:59 Intake Total 800 500 Output Total 9447 Balance 800 -1450 Meds/Results Medications: Active Medications Generic Name Dose Route Start Last Admin Trade Name Freq PRN Reason Stop Dose Admin Acetaminophen 1,000 mg 05/15/20 00:00 05/15/20 06:49 Acetaminophen 500 Mg Tablet PO 1,000 mg Q6HR MEL Administration Apixaban 2.5 mg 05/15/20 09:00 Apixaban 2.5 Mg Tablet PO 05/26/20 21:01 Q12HR MEL Atenolol 50 mg 05/14/20 21:00 05/14/20 20:04 Atenolol 50 Mg Tablet PO 50 mg HS MEL Administration Celecoxib 100 mg 05/15/20 08:00 Celecoxib 100 Mg Capsule PO DAILY@0800 MEL Vancomycin HCl 1,000 mg in 250 mls @ 250 mls/hr 05/14/20 23:00 05/15/20 00:20 Vancomycin 1,000 Mg/D5w 250 Ml IVPB 05/15/20 11:59 Infused Q12H MEL Infusion Cefazolin Sodium 1 gm in 50 mls @ 100 mls/hr 05/14/20 20:00 05/15/20 03:23 Ancef 1 Gm/D5w 50 Ml Pm IVPB 05/15/20 12:29 100 mls/hr Q8H MEL Administration Magnesium Sulfate 2 gm in 50 mls @ 50 mls/hr 05/15/20 07:12 Magnesium Sulf 2 Gm/Water 50ml IVPB 05/15/20 08:11 ONCE ONE Morphine Sulfate 2 mg 05/14/20 17:29 Morphine Sulfate (*Crx) 2 Mg/Ml Inj IV PUSH Q2H PRN Pain Rated 7-10 Naloxone HCl 0.1 mg 05/14/20 17:29 Naloxone Hcl 0.4 Mg/Ml Vial IV PUSH Q2M PRN Opiate Reversal Ondansetron HCl 4 mg 05/14/20 08:30 Ondansetron Inj 4 Mg/2 Ml Vial IV PUSH ONCE PRN Nausea Oxycodone HCl 5 mg 05/14/20 17:29 Oxycodone Hcl (*Crx) 5 Mg Tab Ir PO Q4H PRN Pain Rated 7-10 Oxycodone HCl 5 mg 05/14/20 18:20 05/15/20 04:22 Oxycodone Hcl (*Crx) 5 Mg Tab Ir PO 5 mg Q4HR MEL Administration Polyethylene Glycol 17 gm 05/15/20 09:00 Polyethylene Glycol 3350 17 Gm Powd.Pack PO QAM MEL Senna/Docusate Sodium 2 tab 05/14/20 19:00 05/14/20 18:44 Senna/Docusate Sodium Tablet PO 2 tab BID MEL Administration Triamterene/Hydrochlorothiazide 1 tab 05/14/20 21:00 05/14/20 20:04 Triamterene 37.5 Mg/Hctz 25 Mg (Maxzide) Tablet PO 1 tab HS MEL Administration Vitamin D 2,000 units 05/14/20 21:00 05/14/20 20:03 Cholecalciferol 1,000 Units Tablet PO 2
--- NOTE | 2020-05-15 07:31 | PM.DS ---
DS: Admitting Diagnosis Admitting Diagnosis Admitting Diagnosis: left knee DJD DS: Summary Hospital Course Hospital Course: stable Time Spent with Patient Time attestation: Total time spent providing and/or coordinating discharge services: The patient is 74-year-old female who underwent left total knee arthroplasty 05/14/20. Underwent the procedure without any complications postoperatively she has been afebrile signs was stable there as she has intact wound is dry. She has a Mepilex dressing over it. She was complaining of some numbness and tingling in the left hand when she woke up from surgery. Tingling is in the median nerve distribution. Discussed with her most likely this was little bit of positional thing with surgery. She states that already had improved quite a bit on the morning of postop day 1. Hopefully this will continue to improve. We will monitor this release here in the office. She is on Eliquis for 2 weeks DVT prophylaxis she is also mg Celebrex daily to with pain she is taking oxycodone will schedule Tylenol pain as well to be discharged home on 05/15. The patient had her right knee replaced late last year so she is well aware that she is keep leg elevated to exercise on a regular basis. She has outpatient therapy starting next Tuesday. She uses advise any questions or concerns she should call the office otherwise will see her appointment dates. She recalls, Senokot MiraLax for constipation. DS: Data Data Completed and Pending Labs on day of discharge: Labs from last 24 hours 05/15/20 05/15/20 05/14/20 05:11 05:11 10:15 WBC 11.8 H RBC 3.57 L Hgb 9.6 L Hct 30.0 L MCV 84.0 MCH 26.9 MCHC 32.0 RDW 13.7 Plt Count 250 MPV 9.9 Immature Gran % (Auto) 0.3 Neut % (Auto) 85.2 H Lymph % (Auto) 6.9 L Brown % (Auto) 7.4 Eos % (Auto) 0.0 Baso % (Auto) 0.2 Lymph # (Auto) 0.81 L Brown # (Auto) 0.9 H Eos # (Auto) 0.0 Baso # (Auto) 0.0 Abs Immat Gran (auto) 0.04 H Absolute Neuts (auto) 10.0 H Absolute Nucleated RBC 0.0 Nucleated RBC % 0.0 Sodium 131 L Potassium 3.4 Chloride 96 L Carbon Dioxide 29 Anion Gap 6 L BUN 13 D Creatinine 0.90 Estim Creat Clear Calc 54 Estimated GFR > 60 Glucose 116 H Calcium 8.7 Magnesium 1.4 L Blood Type A Negative Antibody Screen Negative Discharge Plan Discharge Patient Disposition: Home, Self-Care Discharge Instructions: KEYON MONROE M.D [facility], [place] [id number] [place] [id number] POST-OPERATIVE DISCHARGE INSTRUCTIONS TOTAL KNEE ARTHROPLASTY 1. When resting, lie on back with leg elevated above hear to minimize swelling. Significant swelling could indicate a blood clot and if this occurs call the office (or go to the ER) to have a venous ultrasound. 2. Do exercise 5 times a day. 3. Do not sit with leg down except for meals. 4. Wound Care: Nursing will give additional dressings at discharge. Patient to change dressing at home 1 week from surgery, then maintain until seen in office. 5. May shower with dressing in place. 6. Follow weight bearing status instructions. Patient Instructions: Apixaban (By mouth) Follow-up/Referrals: Keyon Monroe MD [Physician] - Keep Reg. Scheduled Appt. Discharge Medications: New acetaminophen 500 mg Tablet 1,000 mg PO Q6HR Qty: 60 RF: 0 Eliquis 2.5 mg Tablet 2.5 mg PO Q12HR Qty: 27 RF: 0 celecoxib [Celebrex] 100 mg Capsule 100 mg PO DAILY@0800 Qty: 30 RF: 0 sennosides-docusate sodium [Senokot-S] 8.6-50 mg Tablet 2 tab-cap PO BID Qty: 60 RF: 0 oxycodone 5 mg Tablet 5 mg PO Q4HR Qty: 50 RF: 0 polyethylene glycol 3350 [Miralax] 17 gram Powder In Packet 17 g PO QAM Qty: 30 RF: 0 aspirin 81 mg tablet,delayed release (DR/EC) 81 mg PO BID Qty: 60 RF: 0 Continued cholecalciferol (vitamin D3) [Vitamin
[2020-05-15 08:00] VITALS: BP 113/59; PULSE 77; RESP 18; TEMP 36.3; TEMP 36.6; O2SAT 92
[2020-05-15] MEDS: CELECOXIB 100 MG CAPSULE PO (08:43)
[2020-05-15] MEDS: polyethylene glycoL 3350 17 GM POWD.PACK PO (09:07)
[2020-05-15] MEDS: SENNA/DOCUSATE SODIUM TABLET 2 TAB PO (09:07)
[2020-05-15] MEDS: APIXABAN 2.5 MG TABLET PO (09:07)
[2020-05-15] MEDS: MAGNESIUM SULF 2 GM/WATER 50ML 2 GM/50 ML BAG IVPB (09:07)
--- NOTE | 2020-05-15 09:19 | WPDANESPN ---
Anes - Prog Note Post-Op Date/Time: 05/15/20 09:19 Cardiovascular status: normal Respiratory status: normal Airway patency: baseline Mental status: baseline Post-Op hydration status: normal Vital Signs: Last Vital Signs Temp 97.9 F 05/15/20 08:00 Pulse 77 05/15/20 08:00 Resp 18 05/15/20 08:00 BP 113/59 L 05/15/20 08:00 Pulse Ox 92 05/15/20 08:00 Pain Score (VAS): 10 I/O: Intake & Output 05/14/20 05/15/20 05/15/20 23:59 07:59 15:59 Intake Total 150 550 Output Total 1950 Balance 150 -1400 Laboratory Tests 05/15/20 05:11 05/15/20 05:11 05/14/20 05/15/20 05/15/20 10:15 05:11 05:11 WBC 11.8 H RBC 3.57 L Hgb 9.6 L Hct 30.0 L MCV 84.0 MCH 26.9 MCHC 32.0 RDW 13.7 Plt Count 250 MPV 9.9 Immature Gran % (Auto) 0.3 Neut % (Auto) 85.2 H Lymph % (Auto) 6.9 L [place] % (Auto) 7.4 Eos % (Auto) 0.0 Baso % (Auto) 0.2 Lymph # (Auto) 0.81 L [place] # (Auto) 0.9 H Eos # (Auto) 0.0 Baso # (Auto) 0.0 Abs Immat Gran (auto) 0.04 H Absolute Neuts (auto) 10.0 H Absolute Nucleated RBC 0.0 Nucleated RBC % 0.0 Sodium 131 L Potassium 3.4 Chloride 96 L Carbon Dioxide 29 Anion Gap 6 L BUN 13 D Creatinine 0.90 Estim Creat Clear Calc 54 Estimated GFR > 60 Glucose 116 H Calcium 8.7 Magnesium 1.4 L Blood Type A Negative Antibody Screen Negative Patient Feedback: Patient satisfied with anesthetic care.
[2020-05-15 10:45] VITALS: BP 102/55; PULSE 63; RESP 18; TEMP 36.3; O2SAT 98
--- NOTE | 2020-05-15 12:37 | PM.IMPN ---
Progress Note: A&P Assessment and Plan (1) Osteoarthritis of left knee: Code(s): M17.12 - Unilateral primary osteoarthritis, left knee Status: Acute Assessment and Plan: Postoperative day 1, status post left total knee arthroplasty. Wound care and pain control will be deferred to Dr. Monroe as well as DVT prophylaxis. (2) Essential hypertension: Code(s): I10 - Essential (primary) hypertension Status: Acute Assessment and Plan: Blood pressures were reviewed and they are a bit soft, but patient asymptomatic. She had this occur last knee surgery and resumed her medications at that time without issue. She understands to check her BP daily and to hold her medications and contact her PCP should she become symptomatic Continue antihypertensives She is to monitor BP daily F/u with PCP Additional Plan Thank you for allowing us to participate in this patient's care. Please do not hesitate to contact us with any questions. Subjective Date/time seen: 05/15/20 12:37 This is a Hospitalist Consult Progress Note Interval history: Patient is a 74-year-old female with history of arthritis, HTN, HLD who is here for elective left TKA per Dr. Monroe; POD1. The hospitalist service has been consulted for management of her medical conditions postoperatively. Patient feels great to day. Anticipating discharge this afternoon. Blood pressure a bit soft, but she notes this occurred with her other knee replacement and continued to take her BP meds after that surgery, without issues. She has no associated complaints such as dizziness/lightheadedness. Denies f/c/s, cp/palpitations, sob/cough, n/v/d/c, abd pain, calf pain/swelling. Review of Systems Review of Systems: All systems reviewed & are unremarkable except as noted in HPI and below Exam Narrative: Exam Narrative: General: Patient resting in semi-recumbent position in bed in no acute distress. HEENT: Normocephalic, EOMI, oral mucosa moist. Cardiovascular: Rate and rhythm are regular. No notable murmur, rub, or gallop. Respiratory: Lungs clear to auscultation anterolateral lung osman. Non-labored breathing. Abdomen: Soft, non-tender, non-distended, bowel sounds present. Extremities: Peripheral pulses intact. No edema. Neuro: No focal neurological deficits. Speech is clear. Objective Data Vital Signs Vital Signs: Last Vital Signs Temp 97.3 F L 05/15/20 10:45 Pulse 63 05/15/20 10:45 Resp 18 05/15/20 10:45 BP 102/55 L 05/15/20 10:45 Pulse Ox 98 05/15/20 10:45 Intake/Output Intake/Output: Intake & Output 05/12/20 05/13/20 05/14/20 05/15/20 23:59 23:59 23:59 23:59 Intake Total 800 1030 Output Total 1950 Balance 800 -920 Meds/Results Medications: Active Medications Generic Name Dose Route Start Last Admin Trade Name Freq PRN Reason Stop Dose Admin Acetaminophen 1,000 mg 05/15/20 00:00 05/15/20 11:36 Acetaminophen 500 Mg Tablet PO 1,000 mg Q6HR MEL Administration Apixaban 2.5 mg 05/15/20 09:00 05/15/20 09:07 Apixaban 2.5 Mg Tablet PO 05/26/20 21:01 2.5 mg Q12HR MEL Administration Atenolol 50 mg 05/14/20 21:00 05/14/20 20:04 Atenolol 50 Mg Tablet PO 50 mg HS MEL Administration Celecoxib 100 mg 05/15/20 08:00 05/15/20 08:43 Celecoxib 100 Mg Capsule PO 100 mg DAILY@0800 MEL Administration Morphine Sulfate 2 mg 05/14/20 17:29 Morphine Sulfate (*Crx) 2 Mg/Ml Inj IV PUSH Q2H PRN Pain Rated 7-10 Naloxone HCl 0.1 mg 05/14/20 17:29 Naloxone Hcl 0.4 Mg/Ml Vial IV PUSH Q2M PRN Opiate Reversal Ondansetron HCl 4 mg 05/14/20 08:30 Ondansetron Inj 4 Mg/2 Ml Vial IV PUSH ONCE PRN Nausea Oxycodone HCl 5 mg 05/14/20 17:29 Oxycodone Hcl (*Crx) 5 Mg Tab Ir PO Q4H PRN Pain Rated 7-10 Oxycodone HCl 5 mg 05/14/20 18:20 05/15/20 12:18
== END 2020-05-15 01:20 | disposition home or self-care (01) ==
LOC: ANHSURGERY 09:56 → ANH2MED 17:32
PROVIDERS: PCP Family Medicine; Visit Provider Orthopaedic Surgery
PROC: (CPT 27447; principal; 2020-05-14 12:00)
DX: M17.12 Unilateral primary osteoarthritis, left knee (principal); I10 Essential (primary) hypertension; I34.0 Nonrheumatic mitral (valve) insufficiency; Z85.3 Personal history of malignant neoplasm of breast; E66.9 Obesity, unspecified; Z68.35 Body mass index [BMI] 35.0-35.9, adult
CPT/HCPCS: 27447; 36415; 73560; 80048; 83735; 85025; 86850; 86900; 86901; 97110; 97161; 97165; A9270; C1713; C1776; J0131; J0171; J0690; J1100; J1170; J2270; J2405; J2704; J2795; J3010; J3370; J3475; J7030; J7120

== ENCOUNTER 2022-06-01 10:33 | Outpatient (CLI) | payer MEDICARE, OTHER, SELFPAY ==
[2022-06-01 19:12] LABS: Basophils Absolute Auto 0.1 K/mm3 (0.0-0.1); Basophils Percent Auto 1.1 % (0.2-1.2); Eosinophils Absolute Auto 0.2 K/mm3 (0-0.3); Eosinophils Percent Auto 2.8 % (0-4.4); Hematocrit 44.8 % (37.0-47.0); Hemoglobin 15.3 g/dL (12.0-15.0); Immature Granulocyte Absolute 0.01 K/mm3 (0.00-0.031); Immature Granulocyte Percent A 0.2 % (0-0.5); Lymphocytes Absolute Auto 1.05 K/mm3 (0.9-3.2); Lymphocytes Percent Auto 18.4 % (18.3-44.2); Mean Corpuscular HGB Conc 34.2 g/dl (32-36); Mean Corpuscular Hemoglobin 31.1 pg (26-34); Mean Corpuscular Volume 91.1 fl (80-100); Mean Platelet Volume 10.3 fl (7.4-10.4); Monocytes Absolute Auto 0.6 K/mm3 (0.1-0.6); Monocytes Percent Auto 9.6 % (2.6-8.5); Neutrophils Absolute Auto 3.9 K/mm3 (1.3-6.7); Neutrophils Percent Auto 67.9 % (45.5-73.1); Platelet Count Result 226 k/mm3 (150-375); Red Blood Count 4.92 M/mm3 (4.2-5.4); Red Cell Distribution Width 12.3 % (11.5-14.5); White Blood Count 5.7 K/mm3 (4.5-10.0)
[2022-06-01 19:20] LABS: Hemoglobin A1C 5.6 % (<5.7)
[2022-06-01 19:26] LABS: Alanine Aminotransferase 26 U/L (6-35); Albumin Level 4.4 g/dL (3.5-5.1); Alkaline Phosphatase 88 U/L (38-126); Anion Gap 6 mmol/L (8-16); Aspartate Amino Transferase 33 U/L (14-36); Blood Urea Nitrogen 22 mg/dL (7-17); Calcium 8.9 mg/dL (8.4-10.2); Carbon Dioxide 36 mmol/L (22-30); Chloride 91 mmol/L (98-107); Cholesterol 233 mg/dL (0-200); Estimated Glomerular Filt Rate > 60; Glucose 114 mg/dL (65-110); HDL Direct 59 mg/dL; Potassium 3.2 mmol/L (3.4-5.0); Sodium 133 mmol/L (137-145); Triglycerides 133 mg/dL (<150)
[2022-06-01 19:36] LABS: LDL Cholesterol Direct 136 mg/dL
== END 2022-06-01 10:34 | disposition home or self-care (01) ==
LOC: ANHGOSHLAB 10:36
PROVIDERS: PCP Emergency Medicine; Visit Provider Physician Assistant
DX: R73.01 Impaired fasting glucose (principal); Z79.899 Other long term (current) drug therapy; I10 Essential (primary) hypertension
CPT/HCPCS: 36415; 80053; 80061; 83036; 84443; 85025

== ENCOUNTER 2022-10-04 08:25 | Outpatient (CLI) | payer MEDICARE, OTHER, SELFPAY ==
[2022-10-04 13:06] LABS: Hematocrit 45.8 % (37.0-47.0); Hemoglobin 15.6 g/dL (12.0-15.0); Mean Corpuscular HGB Conc 34.1 g/dl (32-36); Mean Corpuscular Hemoglobin 31.3 pg (26-34); Mean Platelet Volume 10.2 fl (7.4-10.4); Platelet Count Result 226 k/mm3 (150-375); Red Blood Count 4.98 M/mm3 (4.2-5.4); Red Cell Distribution Width 12.5 % (11.5-14.5); White Blood Count 6.1 K/mm3 (4.5-10.0)
[2022-10-04 13:18] LABS: Alanine Aminotransferase 22 U/L (6-35); Albumin Level 4.1 g/dL (3.5-5.1); Alkaline Phosphatase 81 U/L (38-126); Anion Gap 8 mmol/L (8-16); Aspartate Amino Transferase 36 U/L (14-36); Bilirubin,Total 0.9 mg/dL (0.2-1.3); Blood Urea Nitrogen 14 mg/dL (7-17); Carbon Dioxide 33 mmol/L (22-30); Chloride 86 mmol/L (98-107); Cholesterol 215 mg/dL (0-200); Estimated Glomerular Filt Rate > 60; Glucose 89 mg/dL (65-110); HDL Direct 59 mg/dL; Potassium 3.1 mmol/L (3.4-5.0); Sodium 127 mmol/L (137-145); Triglycerides 151 mg/dL (<150)
[2022-10-04 13:28] LABS: LDL Cholesterol Direct 121 mg/dL
[2022-10-05 00:31] LABS: Hemoglobin A1C 5.5 % (<5.7)
== END 2022-10-04 08:26 | disposition home or self-care (01) ==
LOC: ANHGOSHLAB 08:27
PROVIDERS: PCP Emergency Medicine; Visit Provider Nurse Practitioner Family
DX: R73.01 Impaired fasting glucose (principal); E78.5 Hyperlipidemia, unspecified; I10 Essential (primary) hypertension
CPT/HCPCS: 36415; 80053; 80061; 83036; 84443; 85027

== ENCOUNTER 2023-01-24 09:19 | Outpatient (CLI) | payer MEDICARE, OTHER, SELFPAY ==
[2023-01-24 19:21] LABS: Basophils Absolute Auto 0.1 K/mm3 (0.0-0.1); Basophils Percent Auto 0.8 % (0.2-1.2); Eosinophils Absolute Auto 0.2 K/mm3 (0-0.3); Eosinophils Percent Auto 2.8 % (0-4.4); Hematocrit 46.6 % (37.0-47.0); Hemoglobin 15.2 g/dL (12.0-15.0); Immature Granulocyte Absolute 0.02 K/mm3 (0.00-0.031); Immature Granulocyte Percent A 0.3 % (0-0.5); Lymphocytes Absolute Auto 1.31 K/mm3 (0.9-3.2); Lymphocytes Percent Auto 21.3 % (18.3-44.2); Mean Corpuscular HGB Conc 32.6 g/dl (32-36); Mean Corpuscular Hemoglobin 31.5 pg (26-34); Mean Corpuscular Volume 96.5 fl (80-100); Mean Platelet Volume 9.9 fl (7.4-10.4); Monocytes Absolute Auto 0.6 K/mm3 (0.1-0.6); Monocytes Percent Auto 10.1 % (2.6-8.5); Neutrophils Percent Auto 64.7 % (45.5-73.1); Platelet Count Result 223 k/mm3 (150-375); Red Blood Count 4.83 M/mm3 (4.2-5.4); Red Cell Distribution Width 13.1 % (11.5-14.5); White Blood Count 6.1 K/mm3 (4.5-10.0)
[2023-01-24 21:19] LABS: Alanine Aminotransferase 21 U/L (6-35); Albumin Level 4.3 g/dL (3.5-5.1); Alkaline Phosphatase 88 U/L (38-126); Anion Gap 7 mmol/L (8-16); Aspartate Amino Transferase 37 U/L (14-36); Bilirubin,Total 0.7 mg/dL (0.2-1.3); Blood Urea Nitrogen 20 mg/dL (7-17); Calcium 9.4 mg/dL (8.4-10.2); Carbon Dioxide 31 mmol/L (22-30); Chloride 98 mmol/L (98-107); Cholesterol 252 mg/dL (0-200); Estimated Glomerular Filt Rate > 60; Glucose 93 mg/dL (65-110); HDL Direct 59 mg/dL; Potassium 4.2 mmol/L (3.4-5.0); Sodium 136 mmol/L (137-145); Triglycerides 244 mg/dL (<150)
[2023-01-24 21:30] LABS: LDL Cholesterol Direct 128 mg/dL
[2023-01-24 22:10] LABS: Hemoglobin A1C 5.4 % (<5.7)
== END 2023-01-24 09:20 | disposition home or self-care (01) ==
LOC: ANHGOSHLAB 09:23
PROVIDERS: PCP Emergency Medicine; Visit Provider Nurse Practitioner Family
DX: E78.5 Hyperlipidemia, unspecified (principal); R73.01 Impaired fasting glucose; I10 Essential (primary) hypertension
CPT/HCPCS: 36415; 80053; 80061; 83036; 84443; 85025

== ENCOUNTER 2023-07-27 09:16 | Outpatient (CLI) | payer MEDICARE, OTHER, SELFPAY ==
[2023-07-27 12:59] LABS: Alanine Aminotransferase 19 U/L (6-35); Alkaline Phosphatase 79 U/L (38-126); Anion Gap 6 mmol/L (4-12); Aspartate Amino Transferase 45 U/L (14-36); Bilirubin,Total 0.9 mg/dL (0.2-1.3); Blood Urea Nitrogen 14 mg/dL (7-17); Carbon Dioxide 31 mmol/L (22-30); Chloride 98 mmol/L (98-107); Cholesterol 216 mg/dL (0-200); Estimated Glomerular Filt Rate > 60; Glucose 103 mg/dL (65-110); HDL Direct 69 mg/dL; Potassium 3.4 mmol/L (3.4-5.0); Sodium 135 mmol/L (137-145); Triglycerides 150 mg/dL (<150)
[2023-07-27 13:10] LABS: LDL Cholesterol Direct 123 mg/dL
[2023-07-27 14:32] LABS: Hemoglobin A1C 5.6 % (<5.7)
== END 2023-07-27 09:17 | disposition home or self-care (01) ==
LOC: ANHGOSHLAB 09:17
PROVIDERS: PCP Emergency Medicine; Visit Provider Emergency Medicine
DX: E78.5 Hyperlipidemia, unspecified (principal); R73.01 Impaired fasting glucose; I10 Essential (primary) hypertension
CPT/HCPCS: 36415; 80053; 80061; 83036

== ENCOUNTER 2024-05-24 09:25 | Outpatient (CLI) | payer MEDICARE, OTHER, SELFPAY ==
--- OUTSIDE RECORDS SUMMARY | 2024-05-24 09:46 | XMS_ITS | Referral Summary ---
Author Organization [facility] Address [address] [place] [address] Care Team Providers Care Transitional Living Specialist Name Role Phone Mono Davis MD Primary Care Provider [phone] Allergies Active Allergy Reactions Criticality Noted Date Comments Ibuprofen Unknown 03/27/2020 Medications fexofenadine-ps eudoephedrine (SHANNON-D 24) 180-240 mg per 24 hr tablet Active atenolol (TENORMIN) 100 mg tablet 8 Active furosemide (LASIX) 40 mg tablet 8 Active POTASSIUM CHLORIDE ER 20 mEq CR tablet 8 Active triamterene-hyd roCHLOROthiazid e (MAXZIDE,DYAZID E) 37.5-25 mg per tablet/capsule daily. Activ e cholecalciferol (VITAMIN D-3) 2000 unit capsule daily. Active apixaban (ELIQUIS) 2.5 mg tablet Eliquis 2.5 mg tablet Active celecoxib (CeleBREX) 100 mg capsule celecoxib 100 mg capsule Active lidocaine (XYLOCAINE) 10 mg/mL (1 %) injection lidocaine (PF) 10 mg/mL (1 %) injection solution In office injection administered by the provider Active triamcinolone (KENALOG) 10 mg/mL injection Kenalog 10 mg/mL suspension for injection In office injection administered by the provider Active anastrozole (ARIMIDEX) 1 mg tablet Take 1 tablet (1 mg total) by mouth daily 90 tablet 3 1 Active Active Problems Problem Noted Date Diagnosed Date Malignant neoplasm of upper-outer quadrant of fe male breast 01/23/2014 History of malignant neoplasm of breast 10/17/19 14 Immunizations Immunization Administration Dates Next Due Influenza, Quadrivalent, Rec ombinant, Egg Free, Preservative Free, Intramuscular 12/19/2018 Influenza, Quadrivalent, Split, Intramuscular Influenza, Trivalent, High D ose, Split, Preservative Free, Intramuscular 11/09/2017 Influenza, Trivalent, Preservative Free, Intramu scular 11/26/2009 Social History Tobacco Use Types Packs/Day Years Used Date Smoking Tobacco: Never Smokeless Tobacco: Never Personal Safety Answer Date Recorded Getting School Help Needed Not on file 02/12 Comments No Sex and Gender Information Value Date Recorded Sex Assigned at Not on file Legal Sex 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 Gender Identity Not on file Sexual Orientation Not on file Last Filed Vital Signs Vital Sign Reading Time Taken Comments Blood Pressure 135/69 11/19/2021 11:42 AM CDT Pulse 68 11/19/2021 11:42 AM CDT Temperature 36.3 C (97.4 F) 11/19/2021 11:42 AM CDT Respiratory Rate 14 11/19/2021 11:42 AM CDT Oxygen Saturation 95% 11/19/2021 11:42 AM CDT Inhaled Oxygen Concentration - - Weight 95.7 kg (211 lb) 11/19/2021 11:42 AM CDT Height 162.6 cm (5' 4 ) 11/19/2020 3:16 PM CDT Body Mass Index 36.22 11/19/2020 3:16 PM CDT Plan of Treatment Not on file Procedures Procedure Name Priority Date/Time Associated Diagnosis Comments SCREENING MAMMOGRAM BILATERAL W DANI Schedule Routine, Read Routine (OP Routine) 07/06/2023 1:31 PM CDT Screening mammogram, encounter for DEXA AXIAL SKELETON BONE DENSITY 1 OR MORE SITES Schedule Routine, Read Routine (OP Routine) 02/09/2021 10:33 AM POSITION CLERK Malignant neoplasm of upper-outer quadrant of right breast in female, estrogen receptor positive (HCC) SERUM HEPATITIS PANEL Routine 08/29/2012 10:25 AM CDT from Last 3 Months or Most Recently Relevant to Health Maintenance Results * Screening Mammogram Bilateral W Dani (07/06/2023 1:31 PM CDT) Anatomical Region Laterality Modality Breast Bilateral Mammography Narrative 07/07/2023 4:27 PM CDT Mammogram Technique: Bilateral Digital Breast Tomosynthesis, Bilateral C-view 2D Screening mammogram. Views obtained: bilateral craniocaudal and bilateral mediolateral oblique. Computer Aided Detection was performed. Mammogram Findings: The present examination has been compared to prior imaging studies performed at [facility] on 03/27/2020, 05/26/2021 and 07/02/2022. There are scattered areas of fibroglandular density. There are post breast conservation therapy changes in the right breast. There are no significant changes from the prior study. There is no suspicious abnormality in either breast. Impression: Post breast conservation therapy changes in the right breast are benign. Annual screening mammography is recommended. OVERALL FINAL ASSESSMENT: BI-RADS CATEGORY 2: Benign. Procedure Note Sabrina Farley MD - 07/07/2023 Mammogram Technique: Bilateral Digital Breast Tomosynthesis, Bilateral C-view 2D Screening mammogram. Views obtained: bilateral craniocaudal and bilateral mediolateral oblique. Computer Aided Detection was performed. Mammogram Findings: The present examination has been compared to prior imaging studies performed at [facility] on 03/27/2020, 05/26/2021 and 07/02/2022. There are scattered areas of fibroglandular density. There are post breast conservation therapy changes in the right breast. There are no significant changes from the prior study. There is no suspicious abnormality in either breast. Impression: Post breast conservation therapy changes in the right breast are benign. Annual screening mammography is recommended. OVERALL FINAL ASSESSMENT: BI-RADS CATEGORY 2: Benign. us Self Screening Mammogram IMG MAMMO PROCEDURES Fi nal Result * Dexa Axial Skeleton Bone Density 1 or 2 Site (02/09/2021 10:33 AM POSITION CLERK) Anatomical Region Laterality Modality Body N/A Radiographic Jayde ging Narrative 02/10/2021 2:51 PM POSITION CLERK Patient Name: Ankush Crespo Date of : 1945 Date of scan: 02/09/2021 Bone mineral density was performed on a [employer] Discovery Densitometer. Based on machine cross-calibration and precision studies the least significant changes of this densitometer is 0.024 g/cm2 at the spine, 0.020 g/cm2 at the total proximal femur, and 0.014g/cm2 at the forearm. HISTORY: This is a 75 y.o. postmenopausal female with a history of breast cancer and vitamin D deficiency. She reports that she has never smoked. She has never used smokeless tobacco. She is currently on treatment with vitamin D, aromatase inhibitor and diuretics; and was previously treated with hormone replacement therapy and anticoagulants. INDICATIONS: Menopause status, treatment monitoring, vitamin D deficiency and aromatase inhibitor therapy. FINDINGS: BONE MINERAL DENSITY OF THE LUMBAR SPINE Bone Mineral Density (BMD) of the lumbar spine was measured from L1-L4 and the average density was calculated to be 1.225 gm/cm2. This corresponds to a T-score (standard deviations from the mean of young adults) of 1.6. When compared to the previous study of 02/08/2019 there has been no significant changes in bone density. BONE MINERAL DENSITY OF THE PROXIMAL FEMUR Bone Mineral Density (BMD) of the left hip total was found to be 1.021 gm/cm2. This corresponds to a T-score standard deviations from the mean of young adults of 0.6. Femoral neck is 0.783 gm/cm2 with a T-score (standard deviations from the mean of young adults) of -0.6. When compared to the previous study of 02/08/2019 there has been no significant changes in bone density. SUMMARY: Bone mineral density is near the young adult normal mean with no increased risk for fracture. There has been no significant changes in bone density since previous measurement. ADDITIONAL COMMENTS: Postmenopausal Women and Men Over 50: Diagnostic criteria: Osteoporosis: BMD at or below -2.5 T-score; Osteopenia (low bone mass): BMD between -1.0 and -2.5 T-score. If the patient has a history of a fragility fracture, a fracture that occurred with trauma equivalent to a fall from a standing position or less, then the diagnosis is osteoporosis regardless of bone density. The history and data sections of the bone mineral density scan were prepared by Ivis Barney)(Jose)(BD), CBDT who is accredited by the International Society of Clinical Densitometry. The overall patient assessment and scan interpretation were performed by Carline Ac MD who is certified by the International Society of Clinical Densitometry. [id number] Courtney Gibson MD IMG DXA PROCEDURES Final Result * Serum Hepatitis panel (08/29/2012 10:25 AM CDT) HBV surface ag Negative NEG HISTO RICAL RESULTS HCV ab Negative NEG HISTORICAL RESULTS Comment: Interpretive Data If confirmation is required, call Laboratory Customer Service to request sample to be sent to [facility] for Hepatitis C Virus (HCV) RNA Detection and Quantitation by Real-Time Reverse Datastage Developer-PCR (RT-PCR). Current interpretive data was last revised on 2011 HBV core ab, IgM Negative NEG HIS TORICAL RESULTS Comment: Interpretive Data If test is reported as Equivocal, new sample should be drawn for testing. Current interpretive data was last revised on 2007. HAV ab, IgM Negative NEG HISTORIC AL RESULTS Comment: Interpretive Data If test is reported as Equivocal, new sample should be drawn in two weeks for testing. Current interpretive data was last revised on 2007. Serum 08/29/2012 10:2 5 AM CDT Courtney Gibson MD LAB BLOOD ORDERABLES Final Resul t HISTORICAL RESULTS from Last 3 Months or Most Recently Relevant to Health Maintenance Insurance MEDICARE [employer] MEDICARE [employer] [place] [id number] Care Teams Transitional Living Specialist Relationship Specialty Start Date End Date Mono Davis MD PCP - General Family Medicine 05/12/22
--- OUTSIDE RECORDS SUMMARY | 2024-05-24 09:46 | XMS_ITS | Clinical Summary ---
Author Organization [facility] Address [address] [place] [address] Care Team Providers Care Division Service Manager Name Role Phone Mono Davis MD Primary Care Provider [phone] Allergies Active Allergy Reactions Criticality Noted Date [...] Influenza, Trivalent, Preservative Free, Intramu scular 11/26/2009 Medical History Medical History Date Comments Personal history of malignan t neoplasm of breast History of malignant neoplas m of female breast - Malignant Female Breast Neoplasm, NOS (Added by TW Conv) Family History Medical History Relation Name Comments No Known Problems Father No Known Problems Mother No Known Problems Sister Relation Name Status Comments Father Mother Sister Social History Tobacco Use Types Packs/Day Years Used Date Smoking Tobacco: Never Smokeless Tobacco: Never Personal Safety Answer Date Recorded Getting School Help Needed Not on file 02/12 Comments No Sex and Gender Information Value Date Recorded Sex Assigned at Not on file Legal Sex Female 8:41 AM CUTTER ALUMINUM SHEET Gender Identity Not on file Sexual Orientation Not on file Obstetrics History Last Filed Vital Signs Vital Sign Reading [...] 11/19/2020 3:16 PM CDT Plan of Treatment Health Maintenance Due Date Last Done Comments Depression Screening 1945 Fall Risk Assessment 1945 DTaP/Tdap/Td Vaccine (1 - Tdap) 1957 Hepatitis B Screening 1964 Pneumococcal vaccine 65+ (1 of 2 - PCV) 1965 Zoster Vaccine (1 of 2) 1965 Well Visit 65+ 08/13/2011 Covid-19 Vaccine (3 - Pfizer risk series) 05/09/2020 04/11/2020, 03/21/2020 Osteoporosis Screening-Bone Density Scan 02/09/2023 02/09/2021, 02/08/2019, 02/08/2017, Additional history exists Influenza Vaccine (#1) 2023 9, 11/09/2017, 03/09/2013, Additional history exists Hepatitis C Screening Completed 08/29/2012 Breast Cancer Screening-Mammogram Discontinued 07/06/2023, 07/02/2022, 05/26/2021, Additional history exists Procedures Procedure Name Priority Date/Time Associated Diagnosis Comments SCREENING MAMMOGRAM BILATERAL W DANI Schedule Routine, Read Routine (OP Routine) 07/06/2023 1:31 PM CDT Screening mammogram, encounter for DEXA AXIAL SKELETON BONE DENSITY 1 OR MORE SITES Schedule Routine, Read Routine (OP Routine) 02/09/2021 10:33 AM CUTTER ALUMINUM SHEET Malignant neoplasm of upper-outer quadrant of right [...] compared to prior imaging studies performed at [facility] on 03/27/2020, 05/26/2021 and 07/02/2022. There are [...] compared to prior imaging studies performed at [facility] on 03/27/2020, 05/26/2021 and 07/02/2022. There are [...] 1 or 2 Site (02/09/2021 10:33 AM CUTTER ALUMINUM SHEET) Anatomical Region Laterality Modality Body N/A Radiographic Jayde ging Narrative 02/10/2021 2:51 PM CUTTER ALUMINUM SHEET Patient Name: Ankush Crespo Date of : 1945 Date of scan: 02/09/2021 Bone mineral density was performed on a [employer] Discovery Densitometer. Based on machine cross-calibration and [...] mineral density scan were prepared by Ivis Rm(Amadeo)(Jose)(BD), CBDT who is accredited by the International Society of Clinical Densitometry. The overall patient assessment and scan interpretation were performed by Carline Ac MD who is certified by the International Society of Clinical Densitometry. [id number] Courtney Gibson MD IM DXA PROCEDURES Final Result * Serum Hepatitis panel (08/29/2012 10:25 AM CDT) HBV surface ag Negative NEG HISTO RICAL RESULTS HCV ab Negative NEG HISTORICAL RESULTS Comment: Interpretive Data If confirmation is required, call Laboratory Customer Service to request sample to be sent to [facility] for Hepatitis C Virus (HCV) RNA Detection and Quantitation by Real-Time Reverse [employer] Fab-PCR (RT-PCR). Current interpretive data was last revised [...] 2007. Serum 08/29/2012 10:2 5 AM CDT us Courtney Gibson MD LAB BLOOD ORDERABLES Final Resul t HISTORICAL RESULTS from Last 3 Months or Most Recently Relevant to Health Maintenance Insurance MEDICARE [facility] MEDICARE [employer]IC[employer] Care Teams Division Service Manager Relationship Specialty Start Date End Date Mono Davis MD PCP - General Family Medicine 05/12/22
--- OUTSIDE RECORDS SUMMARY | 2024-05-24 09:46 | XMS_ITS | Encounter Summary ---
Author Organization [facility] Address [address] [place] [address] Phone Care Team Providers Care Rn Surgery Name Role Phone Nevaeh Alves MD Primary Care Provider [phone] Mono Davis MD Primary Care Provider [phone] Encounter Details Date Type Department Care Team (Late st Contact Info) Description 07/08/2017 Orders Only [facility] [address] [place] [address] Courtney Gibson MD [address] [facility] [address] [place] [address] Malignant neoplasm of upper-outer quadrant of right female breast, unspecified estrogen receptor status (HCC) (Primary Dx) Social History Tobacco Use Types Packs/Day Years Used Date Smoking Tobacco: Never Comments Unknown Sex and Gender Information Value Date Recorded Sex Assigned at Not on file Legal Sex Female 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 Gender Identity Not on file Sexual Orientation Not on file documented as of this encounter Plan of Treatment Not on file documented as of this encounter Results * Vitamin D 25 hydroxy (08/11/2017 11:45 AM CDT) Vitamin D 25-OH 61 30 - 80 ng/mL KERRIE MARSHALL Blood specimen (specimen) 08/11/2017 11:45 AM CDT 08/11/2017 12:49 PM CDT Narrative [facility] - 08/11/2017 2:35 PM CDT us Marianne Walker NP LAB BLOOD ORDERABLES Final Result [facility] [place] [address] * (ABNORMAL) Comprehensive metabolic panel (08/11/2017 11:45 AM CDT) Pathologist [facility] Sodium 137 135 - 145 mmol/L [facility] Potassium, pl 3.6 3.3 - 4.9 mmol/L [facility] CO2 29 22 - 32 mmol/L [facility] BUN 22 8 - 25 mg/dL [facility] Glucose 104 70 - 199 mg/dL [facility] Comment: Interpretive Data Fasting glucose >/= 126 mg/dl is diagnostic for diabetes. Fasting is defined as no caloric intake for at least 8 hours. Fasting glucose between 100 mg/dl to 125 mg/dl is diagnostic of prediabetes. In a patient with classic symptoms of hyperglycemia or hyperglycemic crisis, a random glucose >/= 200 mg/dl is diagnostic for diabetes. In the absence of unequivocal hyperglycemia, results should be confirmed by repeat testing. The classification and Diagnosis of Diabetes Diabetes Care 2017;40 (Suppl. 1):S11. Current interpretive data was last revised 2017. Creatinine 0.83 0.60 - 1.10 mg/dL [facility] Calcium 9.7 8.5 - 10.3 mg/dL [facility] Chloride 96(L) 97 - 110 mmol/L [facility] Albumin 4.3 3.5 - 5.0 g/dL [facility] AST 21 10 - 45 Units/L [facility] ALT 17 7 - 45 Units/L [facility] Alk phos 99 40 - 130 Units/L [facility] Bilirubin, total 0.4 0.1 - 1.2 mg/dL [facility] Protein, pl 7.6 6.5 - 8.5 g/dL [facility] Anion gap 12 2 - 15 mmol/L [facility] Blood specimen (specimen) 08/11/2017 11:45 AM CDT 08/11/2017 11:46 AM CDT [facility]ative [facility] - 08/11/2017 12:19 PM CDT us Marianne Walker STAB SETTER AND DRILLER LAB BLOOD ORDERABLES Final Result Performing Organization Address [facility] Co de Phone Number [facility] Department [place] [address] * CBC with auto differential (08/11/2017 11:45 AM CDT) Pathologist [facility] WBC 7.8 3.8 - 9.9 K/cumm [facility] RBC 4.54 3.90 - 5.20 M/cumm [facility] Hgb 12.9 11.9 - 15.5 g/dL [facility] Hct 37.6 35.6 - 45.5 % [facility] MCV 82.8 81.3 - 96.4 fL [facility] MCH 28.4 27.1 - 33.3 pg [facility] MCHC 34.3 32.3 - 35.7 g/dL [facility] RDW CV 13.7 11.1 - 14.9 % [facility] RDW SD 41.1 35.7 - 48.1 fL [facility] Plt 260 150 - 400 K/cumm [facility] MPV 9.6 9.1 - 12.3 fL [facility] NRBC abs 0.00 0.00 - 0.01 K/cumm [facility] Blood specimen (specimen) 08/11/2017 11:45 AM CDT 08/11/2017 11:46 AM CDT Narrative [facility] - 08/11/2017 11:48 AM CDT Marianne Walker STAB SETTER AND DRILLER LAB BLOOD ORDERABLES Final Result Performing Organization Address [facility]/ZIP Co de Phone Number [facility] [place] [address] documented in this encounter Visit Diagnoses Diagnosis Malignant neoplasm of upper-outer quadrant of right female breast, unspecified estrogen receptor status (HCC)- Primary Malignant neoplasm of upper-outer quadrant of right female breast, unspecified estrogen receptor status (HCC) documented in this encounter Care Teams Rn Surgery Relationship Specialty Start Date End Date Nevaeh Alves MD [address] [place], [place] [id number] PCP - General 05/13/16 05/11/22 Mono Davis MD [address] [place] [address] PCP - General Family Medicine 05/12/22 documented as of this encounter
[2024-05-24 10:26] LABS: Basophils Absolute Auto 0.1 K/mm3 (0.0-0.1); Basophils Percent Auto 0.8 % (0.2-1.2); Eosinophils Absolute Auto 0.4 K/mm3 (0-0.3); Eosinophils Percent Auto 7.1 % (0-4.4); Hematocrit 43.9 % (37.0-47.0); Hemoglobin 14.5 g/dL (12.0-15.0); Immature Granulocyte Absolute 0.02 K/mm3 (0.00-0.031); Immature Granulocyte Percent A 0.3 % (0-0.5); Lymphocytes Absolute Auto 1.05 K/mm3 (0.9-3.2); Lymphocytes Percent Auto 17.7 % (18.3-44.2); Mean Corpuscular Hemoglobin 30.6 pg (26-34); Mean Corpuscular Volume 92.6 fl (80-100); Monocytes Absolute Auto 0.8 K/mm3 (0.1-0.6); Monocytes Percent Auto 12.7 % (2.6-8.5); Neutrophils Absolute Auto 3.6 K/mm3 (1.3-6.7); Neutrophils Percent Auto 61.4 % (45.5-73.1); Platelet Count Result 215 k/mm3 (150-375); Red Blood Count 4.74 M/mm3 (4.2-5.4); Red Cell Distribution Width 12.1 % (11.5-14.5); White Blood Count 5.9 K/mm3 (4.5-10.0)
[2024-05-24 12:10] LABS: Alanine Aminotransferase 20 U/L (6-35); Albumin Level 4.1 g/dL (3.5-5.1); Alkaline Phosphatase 88 U/L (38-126); Anion Gap 10 mmol/L (4-12); Aspartate Amino Transferase 35 U/L (14-36); Bilirubin,Total 0.8 mg/dL (0.2-1.3); Blood Urea Nitrogen 20 mg/dL (7-17); Calcium 8.6 mg/dL (8.4-10.2); Carbon Dioxide 30 mmol/L (22-30); Chloride 98 mmol/L (98-107); Cholesterol 199 mg/dL (0-200); Estimated Glomerular Filt Rate > 60; Glucose 126 mg/dL (65-110); HDL Direct 57 mg/dL; Potassium 3.5 mmol/L (3.4-5.0); Sodium 138 mmol/L (137-145); Triglycerides 157 mg/dL (<150); Uric Acid 8.7 mg/dL (2.5-7.5)
[2024-05-24 12:13] LABS: Hemoglobin A1C 5.9 % (<5.7)
[2024-05-24 12:21] LABS: LDL Cholesterol Direct 108 mg/dL
[2024-05-24 12:49] LABS: Vitamin D 25 Hydroxy 29.7 ng/mL
== END 2024-05-24 09:26 | disposition home or self-care (01) ==
LOC: ANHGOSHLAB 09:26
PROVIDERS: PCP Family Medicine; Visit Provider Family Medicine
DX: E55.9 Vitamin D deficiency, unspecified (principal); I10 Essential (primary) hypertension; R73.9 Hyperglycemia, unspecified; E53.8 Deficiency of other specified B group vitamins; M10.00 Idiopathic gout, unspecified site; E78.5 Hyperlipidemia, unspecified
CPT/HCPCS: 36415; 80053; 80061; 82306; 82607; 83036; 84443; 84550; 85025

== ENCOUNTER 2024-06-25 10:21 | Outpatient (CLI) | payer MEDICARE, OTHER, SELFPAY ==
--- NOTE | ~2024-06-25 | DEXA_ITS ---
Bone Density Report Name: ANKUSH CRESPO Age: 78 Sex: Female Ethnicity: White Date of : 1945 Indication: postmenopausal; screening for osteoporosis; height loss; cancer; hysterectomy; Referring Provider: NORBERTO BLANCO Study: Bone densitometry was performed. Exam Date: June 25, 2024 Accession number: [id number] Bone Density: Region BMD T-score Z-score Classification AP Spine(L1-L4) 1.308 2.4 4.9 Normal Femoral Neck (Left) 0.851 0.0 2.2 Normal Total Hip (Left) 1.079 1.1 3.1 Normal Femoral Neck (Right) 0.721 -1.2 1.1 Osteopenia Total Hip (Right) 1.059 1.0 2.9 Normal Total Hip Mean 1.069 1.1 3.0 Normal World Health Organization criteria for BMD impression classify patients as: Normal (T-score at or above -1.0), Osteopenia (T-score between -1.0 and -2.5), or Osteoporosis (T-score at or below -2.5). 10-year Fracture Risk(1): Major Osteoporotic Fracture 9.9% Hip Fracture 1.7% Reported Risk Factors: [place] (), Neck BMD=0.721, BMI=39.4 (1) FRAX(R) Version 3.08. Fracture probability calculated for an untreated patient. Fracture probability may be lower if the patient has received treatment. Clinical Information Provided by Patient: Has used the following medications: Vitamin D Has the following medical conditions: Cancer, Hysterectomy, breast ca Patient maximum height was 65.0 Menopause Age: 37 No regular weight bearing exercise Drinks caffeinated beverages Onset of menses at age 13 Number of children 3 Impression: The patient has low bone mass, based on the Right Femoral Neck T-score. The patient has an estimated ten-year risk of hip fracture of 1.7% and an estimated ten-year risk of major fracture of 9.9%, based on the WHO FRAX algorithm. Discussion: BONE DENSITY IS LOW AT ONE OR MORE SKELETAL SITES. This patient's lowest T-score is low at one or more skeletal sites. It meets the World Health Organization's (WHO) criteria for ?low bone mass? (T-score between -1.0 and -2.5). The patient's 10-year risk of fracture as calculated by FRAX is less than the threshold where pharmacological therapy is recommended by the National Osteoporosis Foundation (NOF). However, all treatment decisions require clinical judgment and consideration of individual patient factors, including patient preferences, comorbidities, previous drug use, risk factors not captured in the FRAX model (e.g., frailty, falls, vitamin D deficiency, increased bone turnover, interval significant decline in bone density) and possible under or overestimation of fracture risk by FRAX. The patient should follow a healthful lifestyle (good nutrition with adequate calcium and vitamin D, and appropriate weight-bearing exercise). Follow-Up: Consider repeating this study in 2 to 3 years to reassess this patient's status, or sooner if there is some new clinical indication. Reported by: MARISELA on 06/25/2024 10:55:00 AM. Reviewed, dictated and finalized at location AKrishan CABRERA
== END 2024-06-25 10:22 | disposition home or self-care (01) ==
LOC: ANHIMG 10:22
PROVIDERS: PCP Family Medicine; Visit Provider Family Medicine
DX: M85.851 Other specified disorders of bone density and structure, right thigh (principal); Z78.0 Asymptomatic menopausal state
CPT/HCPCS: 77080

== ENCOUNTER 2024-11-27 09:23 | Outpatient (CLI) | payer MEDICARE, OTHER, SELFPAY ==
--- OUTSIDE RECORDS SUMMARY | 2024-11-27 09:52 | XMS_ITS | Encounter Summary ---
Author Organization [facility] Address [address] [place] [address] Phone Care Team Providers Care Hand Filer Balance Wheel Name Role Phone Nevaeh Alves MD Primary Care Provider [phone] Mono Davis MD Primary Care Provider [phone] Nat Farrar MD Primary Care Provider Encounter Details Date Type Department Care Team (Late st Contact Info) Description 07/08/2017 Orders Only [facility] Medicine Oncology [address] [place] [address] Courtney Gibson MD [address] [facility] [address] [place] [address] Malignant neoplasm of upper-outer quadrant of right female breast, unspecified estrogen receptor status (HCC) (Primary Dx) Social History Tobacco Use Types Packs/Day Years Used Date Smoking Tobacco: Never Comments Unknown Sex and Gender Information Value Date Recorded Sex Assigned at Not on file Legal Sex Female 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 Gender Identity Not on file Sexual Orientation Not on file documented as of this encounter Plan of Treatment Not on file documented as of this encounter Results * Vitamin D 25 hydroxy (08/11/2017 11:45 AM CDT) Vitamin D 25-OH 61 30 - 80 ng/mL [facility] LI Blood specimen (specimen) 08/11/2017 11:45 AM CDT 08/11/2017 12:49 PM CDT Narrative [facility] - 08/11/2017 2:35 PM CDT us Marianne Walker FOOD SERVICE HOTEL RUNNER LAB BLOOD ORDERABLES Final Result [facility] Department [place] [address] * (ABNORMAL) Comprehensive metabolic panel (08/11/2017 11:45 AM CDT) Sodium 137 135 - 145 mmol/L [facility] Potassium, pl 3.6 3.3 - 4.9 mmol/L [facility] CO2 29 22 - 32 mmol/L [facility] BUN 22 8 - 25 mg/dL [facility] Glucose 104 70 - 199 mg/dL [facility] Comment: Interpretive Data Fasting glucose >/= 126 [...] 2017. Creatinine 0.83 0.60 - 1.10 mg/dL [facility] Calcium 9.7 8.5 - 10.3 mg/dL [facility] Chloride 96(L) 97 - 110 mmol/L [facility] Albumin 4.3 3.5 - 5.0 g/dL [facility] AST 21 10 - 45 Units/L [facility] ALT 17 7 - 45 Units/L [facility] Alk phos 99 40 - 130 Units/L [facility] Bilirubin, total 0.4 0.1 - 1.2 mg/dL [facility] Protein, pl 7.6 6.5 - 8.5 g/dL [facility] Anion gap 12 2 - 15 mmol/L [facility] Blood specimen (specimen) 08/11/2017 11:45 AM CDT 08/11/2017 11:46 AM CDT Narrative [facility] - 08/11/2017 12:19 PM CDT us Marianne Walker FOOD SERVICE HOTEL RUNNER LAB BLOOD ORDERABLES Final Result Performing Organization Address [facility] Co de Phone Number [facility] [place] [address] * CBC with auto differential (08/11/2017 11:45 AM CDT) WBC 7.8 3.8 - 9.9 K/cumm [facility] RBC 4.54 3.90 - 5.20 M/cumm [facility] Hgb 12.9 11.9 - 15.5 g/dL [facility] Hct 37.6 35.6 - 45.5 % [facility] MCV 82.8 81.3 - 96.4 fL [facility] MCH 28.4 27.1 - 33.3 pg [facility] MCHC 34.3 32.3 - 35.7 g/dL [facility] RDW CV 13.7 11.1 - 14.9 % [facility] RDW SD 41.1 35.7 - 48.1 fL [facility] Plt 260 150 - 400 K/cumm [facility] MPV 9.6 9.1 - 12.3 fL [facility] NRBC abs 0.00 0.00 - 0.01 K/cumm [facility] Blood specimen (specimen) 08/11/2017 11:45 AM CDT 08/11/2017 11:46 AM CDT [facility]ative [facility] - 08/11/2017 11:48 AM CDT us Marianne Walker FOOD SERVICE HOTEL RUNNER LAB BLOOD ORDERABLES Final Result Performing Organization Address City/[facility]/ZIP Co de Phone Number [facility] [place] [address] documented in this encounter Visit Diagnoses Diagnosis Malignant neoplasm of upper-outer quadrant of right female breast, unspecified estrogen receptor status (HCC)- Primary Malignant neoplasm of upper-outer quadrant of right female breast, unspecified estrogen receptor status (HCC) documented in this encounter Care Teams Hand Filer Balance Wheel Relationship Specialty Start Date End Date Nevaeh Alves MD [address] [place], [place] [id number] PCP - General 05/13/16 05/11/22 Mono Davis MD [address] [place] [address] PCP - General Family Medicine 05/12/22 09/09/24 Nat Farrar MD [address] [place] [address] [place] [address] PCP - General Family Practice 09/10/24 documented as of this encounter
--- OUTSIDE RECORDS SUMMARY | 2024-11-27 09:53 | XMS_ITS | Clinical Summary ---
Author Organization [facility] al Address [address] [place] [address] Care Team Providers Care Client Support Analyst Name Role Phone Nat Farrar MD Primary Care Provider Allergies Active Allergy Reactions Criticality Noted Date [...] of malignant neoplasm of breast 10/17/19 14 Encounters Date Type Department Care Team Description 09/25/2024 10:34 AM CDT - 09/25/2024 11:59 PM CDT Hospital Encounter [facility] [address] [place] [address] Screening mammogram, encounter for Discharge Disposition: Discharge to home or self care from Last 3 Months Immunizations Immunization Administration Dates Next Due Influenza, Quadrivalent, Rec ombinant, Egg Free, Preservative Free, Intramuscular 12/19/2018 Influenza, Quadrivalent, Split, Intramuscular Influenza, Trivalent, High D ose, Split, Preservative Free, Intramuscular 11/09/2017 Influenza, Trivalent, Preservative Free, Intramu scular 11/26/2009 Surgical History Surgery Date Site/Laterality Comments HYSTERECTOMY 37 Y BREAST LUMPECTOMY 02/21/2009 - 02/20/2010 Right IDC BREAST BIOPSY 02/21/2009 - 02/20/2010 Right Malignant BREAST EXCISIONAL BIOPSY 02/21/1979 - 02/21/1980 Left Benign BREAST EXCISIONAL BIOPSY 02/22/1980 - 02/20/1981 Left Benign BREAST EXCISIONAL BIOPSY 02/21/1982 - 02/20/1983 Right Benign Medical History Medical History Date Comments Personal history of malignan t neoplasm of breast History of malignant neoplas m of female breast - Malignant Female Breast Neoplasm, NOS (Added by TW Conv) History of radiation therapy History of tubal ligation 28 Y Family History Medical History Relation Name Comments No Known Problems Father Breast cancer Maternal cousin No Known Problems Mother Breast cancer Sister Ovarian cancer Neg Hx Relation Name Status Comments Father Maternal cousin Mother Sister Social History Tobacco Use Types Packs/Day Years Used Date Smoking Tobacco: Never Smokeless Tobacco: Never Comments No Sex and Gender Information Value Date Recorded Sex Assigned at Not on file Legal Sex Female 8:41 AM BETA TESTER Gender Identity Not on file Sexual Orientation Not on file Obstetrics History Para Term AB IAB SAB Ectopic Multiple Livin g Live Births 3 3 Date Outcome GA Total Labor Labor/2nd/3rd Weight Sex Type Anes PTL Romy A1 A5 Name Clin Last Filed Vital Signs Vital Sign Reading Time Taken Comments Blood Pressure 135/69 11/19/2021 11:42 AM CDT Pulse 68 11/19/2021 11:42 AM CDT Temperature 36.3 C (97.4 F) 11/19/2021 11:42 AM CDT Respiratory Rate 14 11/19/2021 11:42 AM CDT Oxygen Saturation 95% 11/19/2021 11:42 AM CDT Inhaled Oxygen Concentration - - Weight 97.5 kg (215 lb) 09/25/2024 10:54 AM CDT Height 162.6 cm (5' 4) 09/25/2024 10:54 AM CDT Body Mass Index 36.9 09/25/2024 10:54 AM CDT Plan of Treatment Health Maintenance Due [...] 02/08/2017, Additional history exists Influenza Vaccine (#1) 2024 9, 11/09/2017, 03/09/2013, Additional history exists Hepatitis C Screening Completed 08/29/2012 Breast Cancer Screening-Mammogram Discontinued 09/25/2024, 07/06/2023, 07/02/2022, Additional history exists Procedures Procedure Name Priority Date/Time Associated Diagnosis Comments SCREENING MAMMOGRAM BILATERAL W DANI Schedule Routine, Read Routine (OP Routine) 09/25/2024 11:03 AM CDT Screening mammogram, encounter for DEXA AXIAL SKELETON BONE DENSITY 1 OR MORE SITES Schedule Routine, Read Routine (OP Routine) 02/09/2021 10:33 AM BETA TESTER Malignant neoplasm of upper-outer quadrant of right breast in female, estrogen receptor positive (HCC) SERUM HEPATITIS PANEL Routine 08/29/2012 10:25 AM CDT from Last 3 Months or Most Recently Relevant to Health Maintenance Results * Screening Mammogram Bilateral W Dani (09/25/2024 11:03 AM CDT) Anatomical Region Laterality Modality Breast Bilateral Mammography Impressions 09/26/2024 2:27 PM CDT Right 1) Post-Surgical Finding: Right breast post-surgical finding. Left No evidence of malignancy. OVERALL BI-RADS FINAL ASSESSMENT: 1 - Negative RECOMMENDATION: Recommend bilateral annual screening mammography. Narrative 09/26/2024 2:27 PM CDT EXAMINATION: Screening Mammogram Bilateral W Dani: 09/25/2024 COMPARISON: Relevant prior studies available at the time of interpretation were reviewed, including the most recent mammogram on: 07/06/2023. TECHNIQUE: Mammography was performed with 2D and 3D digital breast tomosynthesis (DBT) images. CAD was utilized. BREAST PARENCHYMAL COMPOSITION: The breasts are heterogeneously dense, which may obscure small masses. FINDINGS: Right 1) Post-Surgical Finding: There are post-surgical findings from breast conservation therapy Left There is no suspicious mass, calcification, or architectural distortion. us Self Screening Mammogram IMG MAMMO PROCEDURES Fi nal Result * Dexa Axial Skeleton Bone Density 1 or 2 Site (02/09/2021 10:33 AM BETA TESTER) Anatomical Region Laterality Modality Body N/A Radiographic Jayde ging Narrative 02/10/2021 2:51 PM BETA TESTER Patient Name: Ankush Crespo Date of : 1945 Date of scan: 02/09/2021 Bone mineral density was performed on a [employer] Discovery Densitometer. Based on machine cross-calibration and [...] by the International Society of Clinical Densitometry. [id number] Courtney Gibson MD IM DXA PROCEDURES Final Result * Serum Hepatitis panel (08/29/2012 10:25 AM CDT) HBV surface ag Negative NEG HISTO RICAL RESULTS HCV ab Negative NEG HISTORICAL RESULTS Comment: Interpretive Data If confirmation is required, call Laboratory Customer Service to request sample to be sent to [facility] for Hepatitis C Virus (HCV) RNA Detection and Quantitation by Real-Time Reverse Service Parts Driver-PCR (RT-PCR). Current interpretive data was last revised [...] Recently Relevant to Health Maintenance Insurance MEDICARE [facility] [place] [employer] [place] [employer] [place] [id number] Care Teams Client Support Analyst Relationship Specialty Start Date End Date Nat Farrar MD [address] [facility] [address] [place] [address] PCP - General Family Practice 09/10/24
[2024-11-27 13:25] LABS: Alanine Aminotransferase 27 U/L (6-35); Albumin Level 4.0 g/dL (3.5-5.1); Alkaline Phosphatase 82 U/L (38-126); Anion Gap 5 mmol/L (4-12); Aspartate Amino Transferase 46 U/L (14-36); Bilirubin,Total 0.7 mg/dL (0.2-1.3); Blood Urea Nitrogen 13 mg/dL (7-17); Calcium 9.0 mg/dL (8.4-10.2); Carbon Dioxide 30 mmol/L (22-30); Chloride 96 mmol/L (98-107); Estimated Glomerular Filt Rate > 60; Glucose 112 mg/dL (65-110); Potassium 3.3 mmol/L (3.4-5.0); Sodium 131 mmol/L (137-145); Total Protein 6.7 g/dL (6.3-8.2); Uric Acid 5.6 mg/dL (2.5-7.5)
[2024-11-27 14:21] LABS: Vitamin B12 907.0 pg/mL (239-931)
[2024-11-27 14:28] LABS: Hemoglobin A1C 6.2 % (<5.7)
== END 2024-11-27 09:24 | disposition home or self-care (01) ==
LOC: ANHGOSHLAB 09:23
PROVIDERS: PCP Family Medicine; Visit Provider Family Medicine
DX: M10.00 Idiopathic gout, unspecified site (principal); I10 Essential (primary) hypertension; R73.03 Prediabetes; E53.8 Deficiency of other specified B group vitamins
CPT/HCPCS: 36415; 80053; 82607; 83036; 84550

== ENCOUNTER 2024-12-11 10:04 | Outpatient (CLI) | payer MEDICARE, OTHER, SELFPAY ==
--- NOTE | ~2024-12-11 | US_ITS ---
EXAMINATION:[email or web address]_US INDICATION:Localized edema TECHNIQUE: Multiple grayscale, color flow and Doppler images of the bilateral lower extremity deep venous systems were obtained and reviewed. COMPARISON:No prior studies for comparison. FINDINGS: The common femoral, superficial femoral and popliteal veins demonstrate normal respiratory variation, augmentation and compressibility. Color flow is also seen within the posterior tibial, peroneal, greater saphenous and profunda veins. No evidence for venous reflux. IMPRESSION: 1: No lower extremity deep venous thrombosis. Reviewed, dictated and finalized at location O.
--- OUTSIDE RECORDS SUMMARY | 2024-12-11 12:02 | XMS_ITS | Encounter Summary ---
Author Organization [facility] Address [address] [place] [address] Phone Care Team Providers Care Pecan Huller Name Role Phone Nevaeh Alves MD Primary Care Provider [phone] Mono Davis MD Primary Care Provider [phone] Nat Farrar MD Primary Care Provider Encounter Details Date Type Department Care Team (Late st Contact Info) Description 07/08/2017 Orders Only [facility] Medicine Oncology [address] [place] [address] Courtney Gibson MD [address] 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 Gender Identity Not on file Sexual Orientation Not on file documented as of this encounter Plan of Treatment Not on file documented as of this encounter Results * Vitamin D 25 hydroxy (08/11/2017 11:45 AM CDT) Vitamin D 25-OH 61 30 - 80 ng/mL [facility] LI Blood specimen (specimen) 08/11/2017 11:45 AM CDT 08/11/2017 12:49 PM CDT Narrative [facility] - 08/11/2017 2:35 PM CDT us Marianne Walker CHART CALCULATOR LAB BLOOD ORDERABLES Final Result [facility] Department [place] [address] * (ABNORMAL) Comprehensive metabolic panel (08/11/2017 11:45 AM CDT) Sodium 137 135 - 145 mmol/L [facility] Potassium, pl 3.6 3.3 - 4.9 mmol/L [facility] CO2 29 22 - 32 mmol/L [facility] BUN 22 8 - 25 mg/dL [facility] Glucose 104 70 - 199 mg/dL [facility] Comment: Interpretive Data Fasting glucose >/= [...] 2017. Creatinine 0.83 0.60 - 1.10 mg/dL [facility] Calcium 9.7 8.5 - 10.3 mg/dL [facility] Chloride 96(L) 97 - 110 mmol/L [facility] Albumin 4.3 3.5 - 5.0 g/dL [facility] AST 21 10 - 45 Units/L [facility] ALT 17 7 - 45 Units/L [facility] Alk phos 99 40 - 130 Units/L [facility] Bilirubin, total 0.4 0.1 - 1.2 mg/dL [facility] Protein, pl 7.6 6.5 - 8.5 g/dL [facility] Anion gap 12 2 - 15 mmol/L [facility] Blood specimen (specimen) 08/11/2017 11:45 AM CDT 08/11/2017 11:46 AM CDT Narrative [facility] - 08/11/2017 12:19 PM CDT us Marianne Walker CHART CALCULATOR LAB BLOOD ORDERABLES Final Result Performing Organization Address [facility] [[email or web address]] Co de Phone Number [facility] [place] [address] * CBC with auto differential (08/11/2017 11:45 AM CDT) WBC 7.8 3.8 - 9.9 K/cumm [facility] RBC 4.54 3.90 - 5.20 M/cumm [facility] Hgb 12.9 11.9 - 15.5 g/dL [facility] Hct 37.6 35.6 - 45.5 % [facility] MCV 82.8 81.3 - 96.4 fL [facility] MCH 28.4 27.1 - 33.3 pg [facility] MCHC 34.3 32.3 - 35.7 g/dL [facility] RDW CV 13.7 11.1 - 14.9 % [facility] RDW SD 41.1 35.7 - 48.1 fL [facility] Plt 260 150 - 400 K/cumm [facility] MPV 9.6 9.1 - 12.3 fL [facility] NRBC abs 0.00 0.00 - 0.01 K/cumm [facility] Blood specimen (specimen) 08/11/2017 11:45 AM CDT 08/11/2017 11:46 AM CDT Narrative [facility] - 08/11/2017 11:48 AM CDT us Marianne Walker CHART CALCULATOR LAB BLOOD ORDERABLES Final Result Performing Organization Address City/[facility]/ZIP Co de Phone Number [facility] [address] documented in this encounter Visit Diagnoses Diagnosis Malignant neoplasm of upper-outer quadrant of right female breast, unspecified estrogen receptor status (HCC)- Primary Malignant neoplasm of upper-outer quadrant of right female breast, unspecified estrogen receptor status (HCC) documented in this encounter Care Teams Pecan Huller Relationship Specialty Start Date End Date Nevaeh Alves MD [address] [place], [place] [id number] PCP - General 05/13/16 05/11/22 Mono Davis MD [address] [place] [address] PCP - General Family Medicine 05/12/22 09/09/24 Nat Farrar MD [address] [place] [address] [place] [address] PCP - General Family Practice 09/10/24 documented as of this encounter
--- OUTSIDE RECORDS SUMMARY | 2024-12-11 12:02 | XMS_ITS | Clinical Summary ---
Author Organization [facility] al Address [address] [place] [address] Care Team Providers Care Retort Setter Name Role Phone Nat Farrar MD Primary [...] - 09/25/2024 11:59 PM CDT Hospital Encounter [facility] [address] [place] [address] Screening mammogram, encounter for Discharge Disposition: Discharge [...] on file Legal Sex Female 8:41 AM AVIATION BOATSWAIN'S MATE Gender Identity Not on file Sexual Orientation [...] Read Routine (OP Routine) 02/09/2021 10:33 AM AVIATION BOATSWAIN'S MATE Malignant neoplasm of upper-outer quadrant of right [...] 1 or 2 Site (02/09/2021 10:33 AM AVIATION BOATSWAIN'S MATE) Anatomical Region Laterality Modality Body N/A Radiographic Jayde ging Narrative 02/10/2021 2:51 PM AVIATION BOATSWAIN'S MATE Patient Name: Ankush Crespo Date of : 1945 Date of scan: 02/09/2021 Bone mineral density was performed on a [employer] Discovery Densitometer. Based on machine cross-calibration and [...] by the International Society of Clinical Densitometry. [id number] Courtney Gibson MD IM DXA PROCEDURES Final Result * Serum Hepatitis panel (08/29/2012 10:25 AM CDT) HBV surface ag Negative NEG HISTO RICAL RESULTS HCV ab Negative NEG HISTORICAL RESULTS Comment: Interpretive Data If confirmation is required, call Laboratory Customer Service to request sample to be sent to [facility] for Hepatitis C Virus (HCV) RNA Detection and Quantitation by Real-Time Reverse Reconciliation Machine Operator-PCR (RT-PCR). Current interpretive data was last revised [...] Recently Relevant to Health Maintenance Insurance MEDICARE [facility] [employer] [place] MED[employer] [address] Care Teams Retort Setter Relationship Specialty Start Date End Date Nat Farrar MD [address] [facility] [address] [place] [address] PCP - General Family Practice 09/10/24
== END 2024-12-11 10:05 | disposition home or self-care (01) ==
PROVIDERS: PCP Family Medicine; Visit Provider Family Medicine
DX: I87.2 Venous insufficiency (chronic) (peripheral) (principal)
CPT/HCPCS: 93970

== ENCOUNTER 2024-12-12 09:28 | Outpatient (CLI) | payer MEDICARE, OTHER, SELFPAY ==
--- OUTSIDE RECORDS SUMMARY | 2024-12-12 10:37 | XMS_ITS | Clinical Summary ---
Author Organization [facility] al Address [address] [place] [address] Care Team Providers Care Reactor Kettle Operator Name Role Phone Nat Farrar MD Primary [...] - 09/25/2024 11:59 PM CDT Hospital Encounter [facility] [address] [place] [address] Screening mammogram, encounter for Discharge Disposition: Discharge [...] on file Legal Sex Female 8:41 AM DEPUTY PROSECUTING ATTORNEY Gender Identity Not on file Sexual Orientation [...] Read Routine (OP Routine) 02/09/2021 10:33 AM DEPUTY PROSECUTING ATTORNEY Malignant neoplasm of upper-outer quadrant of right [...] PM CDT EXAMINATION: Screening Mammogram Bilateral W Adni: 09/25/2024 COMPARISON: Relevant prior studies available at [...] 1 or 2 Site (02/09/2021 10:33 AM DEPUTY PROSECUTING ATTORNEY) Anatomical Region Laterality Modality Body N/A Radiographic Jayde ging Narrative 02/10/2021 2:51 PM DEPUTY PROSECUTING ATTORNEY Patient Name: Ankush Crespo Date of : 1945 Date of scan: 02/09/2021 Bone mineral density was performed on a [employer] Discovery Densitometer. Based on machine cross-calibration and [...] by the International Society of Clinical Densitometry. [id number] Courtney Gibson MD IM DXA PROCEDURES Final Result * Serum Hepatitis panel (08/29/2012 10:25 AM CDT) HBV surface ag Negative NEG HISTO RICAL RESULTS HCV ab Negative NEG HISTORICAL RESULTS Comment: Interpretive Data If confirmation is required, call Laboratory Customer Service to request sample to be sent to [facility] for Hepatitis C Virus (HCV) RNA Detection and Quantitation by Real-Time Reverse Supervisor Reactor Fueling-PCR (RT-PCR). Current interpretive data was last revised [...] Recently Relevant to Health Maintenance Insurance MEDICARE [facility] [place] MED[place] [id number] Care Teams Reactor Kettle Operator Relationship Specialty Start Date End Date Nat Farrar MD [address] [facility] [address] [place] [address] PCP - General Family Practice 09/10/24
--- OUTSIDE RECORDS SUMMARY | 2024-12-12 10:37 | XMS_ITS | Encounter Summary ---
Author Organization [facility] Address [address] [place] [address] Phone Care Team Providers Care Environmental Health Aide Name Role Phone Nevaeh Alves MD Primary Care Provider Mono Davis MD Primary Care Provider [phone] Nat Farrar MD Primary Care Provider Encounter Details Date Type Department Care Team (Late st Contact Info) Description 07/08/2017 Orders Only [facility] Medicine Oncology [address] [place] [address] Courtney Gibson MD 10 [facility] [address] [place] [address] Malignant neoplasm of upper-outer quadrant of right female breast, unspecified estrogen receptor status (HCC) (Primary Dx) Social History Tobacco Use Types Packs/Day Years Used Date Smoking Tobacco: Never Comments Unknown Sex and Gender Information Value Date Recorded Sex Assigned at Not on file 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 Gender Identity Not on file Sexual Orientation Not on file documented as of this encounter Plan of Treatment Not on file documented as of this encounter Results * Vitamin D 25 hydroxy (08/11/2017 11:45 AM CDT) Vitamin D 25-OH 61 30 - 80 ng/mL [facility] Blood specimen (specimen) 08/11/2017 11:45 AM CDT 08/11/2017 12:49 PM CDT Narrative [facility] - 08/11/2017 2:35 PM CDT us Marianne Walker INTEGRATED CAMPAIGN MANAGER LAB BLOOD ORDERABLES Final Result [facility] One [facility] [place] [address] * (ABNORMAL) Comprehensive metabolic panel (08/11/2017 11:45 AM CDT) Sodium 137 135 - 145 mmol/L [facility] Potassium, pl 3.6 3.3 - 4.9 mmol/L [facility] CO2 29 22 - 32 mmol/L [facility] BUN 22 8 - 25 mg/dL [facility] Glucose 104 70 - 199 mg/dL [facility] Comment: Interpretive Data Fasting glucose >/= [...] 2017. Creatinine 0.83 0.60 - 1.10 mg/dL [facility] Calcium 9.7 8.5 - 10.3 mg/dL [facility] Chloride 96(L) 97 - 110 mmol/L [facility] Albumin 4.3 3.5 - 5.0 g/dL [facility] AST 21 10 - 45 Units/L [facility] ALT 17 7 - 45 Units/L [facility] Alk phos 99 40 - 130 Units/L [facility] Bilirubin, total 0.4 0.1 - 1.2 mg/dL [facility] Protein, pl 7.6 6.5 - 8.5 g/dL [facility] Anion gap 12 2 - 15 mmol/L [facility] Blood specimen (specimen) 08/11/2017 11:45 AM CDT 08/11/2017 11:46 AM CDT Narrative [facility] - 08/11/2017 12:19 PM CDT us Marianne Walker INTEGRATED CAMPAIGN MANAGER LAB BLOOD ORDERABLES Final Result Performing Organization Address [facility] Co de Phone Number [facility] [place] [address] * CBC with auto differential (08/11/2017 11:45 AM CDT) WBC 7.8 3.8 - 9.9 K/cumm [facility] RBC 4.54 3.90 - 5.20 M/cumm [facility] Hgb 12.9 11.9 - 15.5 g/dL [facility] Hct 37.6 35.6 - 45.5 % [facility] MCV 82.8 81.3 - 96.4 fL [facility] MCH 28.4 27.1 - 33.3 pg [facility] MCHC 34.3 32.3 - 35.7 g/dL [facility] RDW CV 13.7 11.1 - 14.9 % [facility] RDW SD 41.1 35.7 - 48.1 fL [facility] Plt 260 150 - 400 K/cumm [facility] MPV 9.6 9.1 - 12.3 fL [facility] NRBC abs 0.00 0.00 - 0.01 K/cumm [facility] Blood specimen (specimen) 08/11/2017 11:45 AM CDT 08/11/2017 11:46 AM CDT [facility]ative [facility] - 08/11/2017 11:48 AM CDT us Marianne Walker INTEGRATED CAMPAIGN MANAGER LAB BLOOD ORDERABLES Final Result Performing Organization Address City/[facility]/ZIP Co de Phone Number [facility] [place] [address] documented in this encounter Visit Diagnoses Diagnosis Malignant neoplasm of upper-outer quadrant of right female breast, unspecified estrogen receptor status (HCC)- Primary Malignant neoplasm of upper-outer quadrant of right female breast, unspecified estrogen receptor status (HCC) documented in this encounter Care Teams Environmental Health Aide Relationship Specialty Start Date End Date Nevaeh Alves MD [address] [place] [place], [place] [id number] PCP - General 05/13/16 05/11/22 Mono Davis MD [address] [place] [address] PCP - General Family Medicine 05/12/22 09/09/24 Nat Farrar MD [address] [place] [address] [place] [address] PCP - General Family Practice 09/10/24 documented as of this encounter
[2024-12-12 15:56] LABS: Alanine Aminotransferase 33 U/L (6-35); Albumin Level 4.1 g/dL (3.5-5.1); Alkaline Phosphatase 78 U/L (38-126); Anion Gap 9 mmol/L (4-12); Aspartate Amino Transferase 49 U/L (14-36); Bilirubin,Total 0.7 mg/dL (0.2-1.3); Blood Urea Nitrogen 16 mg/dL (7-17); Calcium 9.3 mg/dL (8.4-10.2); Carbon Dioxide 29 mmol/L (22-30); Chloride 101 mmol/L (98-107); Estimated Glomerular Filt Rate > 60; Glucose 104 mg/dL (65-110); Potassium 3.6 mmol/L (3.4-5.0); Sodium 139 mmol/L (137-145); Total Protein 6.7 g/dL (6.3-8.2)
[2024-12-12 15:59] LABS: NT Pro B Type Natriuretic Pept 512 pg/mL (19.9-100)
== END 2024-12-12 09:29 | disposition home or self-care (01) ==
PROVIDERS: PCP Family Medicine; Visit Provider Family Medicine
DX: R60.9 Edema, unspecified (principal); I10 Essential (primary) hypertension; R06.09 Other forms of dyspnea; E87.6 Hypokalemia
CPT/HCPCS: 36415; 80053; 83880

== ENCOUNTER 2024-12-12 10:50 | Outpatient (CLI) | payer MEDICARE, OTHER, SELFPAY ==
--- NOTE | ~2024-12-12 | XR_ITS ---
XR chest 2V INDICATION: Shortness of breath TECHNIQUE: 2 view chest. FINDINGS: 10/17/2019 There is mild bilateral interstitial prominence and peribronchial cuffing. There is no focal consolidation, pleural effusion, or pneumothorax. The lungs are hyperinflated which is consistent with, but not diagnostic of chronic obstructive pulmonary disease. The cardiomediastinal silhouette is normal. IMPRESSION: 1. Findings most consistent with bronchiolitis versus an atypical or viral pneumonia. Reviewed, dictated and finalized at location O. IMPRESSION: 1. Findings most consistent with bronchiolitis versus an atypical or viral pne [facility] [[email or web address]].
== END 2024-12-12 10:51 | disposition home or self-care (01) ==
LOC: GOSHIMG 10:51
PROVIDERS: PCP Family Medicine; Visit Provider Family Medicine
DX: R06.09 Other forms of dyspnea (principal); R91.8 Other nonspecific abnormal finding of lung field
CPT/HCPCS: 71046

== ENCOUNTER 2024-12-28 13:28 | Outpatient (CLI) | payer MEDICARE, OTHER, SELFPAY ==
--- OUTSIDE RECORDS SUMMARY | 2024-12-28 13:31 | XMS_ITS | Encounter Summary ---
Author Organization [facility] Address [address] [place] [address] Phone Care Team Providers Care Dumpling Machine Operator Name Role Phone Nevaeh Alves MD Primary Care Provider [phone] Mono Davis MD Primary Care Provider [phone] Nat Farrar MD Primary Care Provider Encounter Details Date Type Department Care Team (Late st Contact Info) Description 07/08/[address] 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 Gender Identity Not on file Sexual Orientation [...] 08/11/2017 2:35 PM CDT us Marianne Walker BULLET CASTING OPERATOR LAB BLOOD ORDERABLES Final Result [facility] One [facility] Department [place] [address] * (ABNORMAL) Comprehensive metabolic panel (08/11/2017 11:45 [...] CDT 08/11/2017 11:46 AM CDT Narrative [facility] - 08/11/2017 12:19 PM CDT us Marianne Walker BULLET CASTING OPERATOR LAB BLOOD ORDERABLES Final Result Performing Organization Address [facility] Co de Phone Number [facility] [place] [employer] [place] [address] * CBC with auto differential (08/11/2017 11:45 [...] AM CDT 08/11/2017 11:46 AM CDT Narrative [facility] - 08/11/2017 11:48 AM CDT us Marianne Walker BULLET CASTING OPERATOR LAB BLOOD ORDERABLES Final Result Performing Organization Address City/[facility]/ZIP Co de Phone Number [facility] [place] [place] [address] documented in this encounter Visit Diagnoses Diagnosis Malignant neoplasm of upper-outer quadrant of right female breast, unspecified estrogen receptor status (HCC)- Primary Malignant neoplasm of upper-outer quadrant of right female breast, unspecified estrogen receptor status (HCC) documented in this encounter Care Teams Dumpling Machine Operator Relationship Specialty Start Date End Date Nevaeh Alves MD [address] [place], [place] [id number] PCP - General 05/13/16 05/11/22 Mono Davis MD [address] [place] [address] PCP - General Family Medicine 05/12/22 09/09/24 Nat Farrar MD [address] [place] [address] [place] [address] PCP - General Family Practice 09/10/24 documented as of this encounter
--- OUTSIDE RECORDS SUMMARY | 2024-12-28 13:31 | XMS_ITS | Clinical Summary ---
Author Organization [facility] al Address [address] [place] [address] Care Team Providers Care Edi Architect Name Role Phone Nat Farrar MD Primary [...] on file Legal Sex Female 8:41 AM WELDING MACHINE OPERATOR ARC Gender Identity Not on file Sexual Orientation [...] Read Routine (OP Routine) 02/09/2021 10:33 AM WELDING MACHINE OPERATOR ARC Malignant neoplasm of upper-outer quadrant of right [...] 1 or 2 Site (02/09/2021 10:33 AM WELDING MACHINE OPERATOR ARC) Anatomical Region Laterality Modality Body N/A Radiographic Jayde ging Narrative 02/10/2021 2:51 PM WELDING MACHINE OPERATOR ARC Patient Name: Ankush Crespo Date of : 1945 Date of scan: 02/09/2021 Bone mineral density was performed on a HoloPromobucket Discovery Densitometer. Based on machine cross-calibration and [...] by the International Society of Clinical Densitometry. [id number] Courtney Gibson MD IM DXA PROCEDURES Final Result * Serum Hepatitis panel (08/29/2012 10:25 AM CDT) HBV surface ag Negative NEG HISTO RICAL RESULTS HCV ab Negative NEG HISTORICAL RESULTS Comment: Interpretive Data If confirmation is required, call Laboratory Customer Service to request sample to be sent to [facility] for Hepatitis C Virus (HCV) RNA Detection and Quantitation by Real-Time Reverse Carcass Splitter-PCR (RT-PCR). Current interpretive data was last revised [...] Recently Relevant to Health Maintenance Insurance MEDICARE [facility] MEDICARE [place] MEDIC[place] [employer] Care Teams Edi Architect Relationship Specialty Start Date End Date Nat Farrar MD [address] [place] [address] DR [address] [place] [address] PCP - General Family Practice 09/10/24
--- NOTE | 2024-12-28 13:33 | ECHO_ITS ---
Patient Info Name: Karen King Age: 79 years : 1945 Gender: Female Ht: 64 in Wt: 222 lbs BSA: 2.18 m2 HR: 73 bpm BP: 151 / 82 mmHg Technical Quality: Fair Exam Date: 12/28/2024 1:35 PM Patient Status: O Admit Date: 12/28/2024 Exam Type: CA echo doppler color flow Complete two-dimensional, color flow and Doppler transthoracic echocardiogram is performed. Labeler: Yael Ashley Attending Provider: Sarah Farrar Summary 1. Complete two-dimensional, color flow and Doppler transthoracic echocardiogram is performed. 2. Left ventricular chamber dimension is normal. 3. Left ventricular systolic function is normal, estimated at 60-65. 4. The left ventricular diastolic function is grade I diastolic dysfunction. 5. E/e' 11 is mildly elevated. 6. Left atrial chamber dimension is mildly enlarged. 7. The mitral valve has a moderately calcified annulus. 8. There is mild mitral valve regurgitation. 9. There is trace tricuspid valve regurgitation. 10. No pulmonary hypertension, estimated pulmonary arterial systolic pressure is 29 mmHg. Left Ventricle E/e' 11 is mildly elevated. Left ventricular chamber dimension is normal. Left ventricular systolic function is normal, estimated at 60-65. The left ventricular diastolic function is grade I diastolic dysfunction. Right Ventricle Right ventricular chamber dimension is normal. Right ventricular systolic function is normal. Left Atria Left atrial chamber dimension is mildly enlarged. Right Atria Right atrial chamber dimension is normal. Aortic Valve The aortic valve is trileaflet. There is no aortic valve stenosis. There is no aortic valve regurgitation. Pulmonic Valve There is no pulmonic regurgitation. Mitral Valve The mitral valve has a moderately calcified annulus. There is no mitral valve stenosis. There is mild mitral valve regurgitation. Tricuspid Valve There is trace tricuspid valve regurgitation. No pulmonary hypertension, estimated pulmonary arterial systolic pressure is 29 mmHg. Pericardium/Pleural There is no pericardial effusion. Inferior Vena Cava Normal inferior vena cava with >50% collapse upon inspiration consistent with normal right atrial pressure, 5 mmHg. Aorta The aortic root size at the sinus of Valsalva is normal. Left Ventricular Outflow Tract Name Value Normal LVOT 2D LVOT Diameter 1.9 cm LVOT Doppler LVOT Peak Velocity 88 cm/s LVOT Peak Gradient 3 mmHg LVOT Mean Gradient 2 mmHg LVOT VTI 17 cm LVOT VTI/AV VTI Ratio 0.8 LVOT Stroke Volume 48 ml LVOT CO 3.2 l/min LVOT CI 1.5 l/min/m2 Pulmonic Valve Name Value Normal RVOT Doppler RVOT Peak Velocity 81 cm/s RVOT Peak Gradient 3 mmHg PV Doppler PV Peak Velocity 90 cm/s PV Peak Gradient 3 mmHg Mitral Valve Name Value Normal MV Diastolic Function MV E Peak Velocity 95 cm/s MV A Peak Velocity 105 cm/s MV E/A 0.9 MV Decel Time (PW) 223 ms Tricuspid Valve Name Value Normal TV Regurgitation Doppler TR Peak Velocity 245 cm/s TR Peak Gradient 24 mmHg Estimated PAP/RSVP RA Pressure 5 mmHg <=5 PA Systolic Pressure 29 mmHg <36 RV Systolic Pressure 29 mmHg <36 Aorta Name Value Normal Ascending Aorta Ao Root Diameter (MM) 3.4 cm Ao Root Diam Index (MM) 1.6 cm/m2 Aortic Valve Name Value Normal AV Doppler AV Peak Velocity 112 cm/s AV Peak Gradient 5 mmHg AV Mean Gradient 3 mmHg AV VTI 21 cm AV Area (Cont Eq VTI) 2.2 cm2 >=3.0 AV Area (Cont Eq Mukesh) 2.3 cm2 AV DI (Mukesh) 0.79 AV Regurgitation 2D LVOT Area 2.9 cm2 Ventricles Name Value Normal LV Dimensions 2D/MM IVS Diastolic Thickness (2D) 1.0 cm 0.6-1.0 IVS Diastole Thickness (MM) 1.0 cm 0.6-0.9 LVID Diastole (2D) 3.6 cm 3.8-5.2 LVID Diastole (MM) 4.7 cm 3.8-5.2 LVIW Diastolic Thickness (2D) 0.9 cm 0.6-0.9 LVIW Diastolic Thickness (MM) 1.0 cm 0.6-0.9 LVID Systole (2D) 2.1 cm 2.2-3.5 LVID Systole (MM) 2.5 cm 2.2-3.5 LVOT Diameter 1.9 cm LV Mass (2D Cubed) 97.93 g 67.00-162.00 LV Mass Index (2D Cubed) 45 g/m2 43-95 Relative Wall Thickness (2D) 0.50 <=0.42 LV Mass (MM Cubed) 156.81 g 67.00-162.00 LV Mass Index (MM Cubed) 72 g/m2 43-95 Relative Wall Thickness (MM) 0.40 LV Fractional Shortening/Ejection Fraction 2D/MM LV Fractional Shortening (2D) 41 % 27-45 LV Fractional Shortening (MM) 48 % 27-45 LV EF (MM Teichholz) 79 % LV EF (2D Teichholz) 72 % LV Diastolic Volume (4C MOD) 47 ml LV EF (4C MOD) 62 % LV Diastolic Volume (2C MOD) 34 ml LV EF (2C MOD) 66 % LV Diastolic Volume (BP MOD) 40 ml 46-106 LV Diastolic Volume Index (BP MOD) 18 ml/m2 29-61 LV Systolic Volume (BP MOD) 15 ml 14-42 LV Systolic Volume Index (BP MOD) 7 ml/m2 8-24 LV EF (BP MOD) 62 % 54-74 LV Diastolic Length (4C) 6.8 cm LV Systolic Length (4C) 5.6 cm LV Stroke Volume (4C MOD) 29 ml Atria Name Value Normal LA Dimensions LA Dimension (MM) 3.5 cm 2.7-3.8 LA Volume (4C A-L) 37 ml LA Volume (BP A-L) 33 ml RA Dimensions RA Systolic Major [place] Length (4C) 3.7 cm 2.2-2.8 RA Area (4C) 7.2 cm2 <=18.0 Report Signatures
== END 2024-12-28 13:29 | disposition home or self-care (01) ==
LOC: ANHCARD 13:29
PROVIDERS: PCP Family Medicine; Visit Provider Family Medicine
DX: R93.1 Abnormal findings on diagnostic imaging of heart and coronary circulation (principal); R06.09 Other forms of dyspnea; R06.9 Unspecified abnormalities of breathing; I10 Essential (primary) hypertension
CPT/HCPCS: 93306

== ENCOUNTER 2025-01-11 10:12 | Outpatient (CLI) | payer MEDICARE, OTHER, SELFPAY ==
--- OUTSIDE RECORDS SUMMARY | 2025-01-11 10:15 | XMS_ITS | Encounter Summary ---
Author Organization [facility] Address [address] [place] [address] Phone Care Team Providers Care Working Supervisor Name Role Phone Nevaeh Alves MD Primary Care Provider [phone] Mono Davis MD Primary Care Provider [phone] Nat Farrar MD Primary Care Provider Encounter Details Date Type Department Care Team (Late st Contact Info) Description 07/08/2017 Orders Only [facility] Medicine Oncology [address] [place] [address] Courtney Gibson MD 10 [facility] [address] [place] [address] Malignant neoplasm of upper-outer quadrant of right female breast, unspecified estrogen receptor status (HCC) (Primary Dx) Social History Tobacco Use Types Packs/Day Years Used Date Smoking Tobacco: Never Comments Unknown Sex and Gender Information Value Date Recorded Sex Assigned at Not on file Legal Sex Female 8:41 AM HOSPITAL LABORATORY TECHNICIAN Gender Identity Not on file Sexual Orientation Not on file documented as of this encounter Plan of Treatment Not on file documented as of this encounter Results * Vitamin D 25 hydroxy (08/11/2017 11:45 AM CDT) Vitamin D 25-OH 61 30 - 80 ng/mL [facility] Blood specimen (specimen) 08/11/2017 11:45 AM CDT 08/11/2017 12:49 PM CDT Narrative [facility] - 08/11/2017 2:35 PM CDT us Marianne Walker GAME DESIGNER LAB BLOOD ORDERABLES Final Result [facility] One [facility] Department [place] [address] * (ABNORMAL) Comprehensive metabolic panel (08/11/2017 11:45 AM CDT) Sodium 137 135 - 145 mmol/L [facility] Potassium, pl 3.6 3.3 - 4.9 mmol/L [facility] CO2 29 22 - 32 mmol/L [facility] BUN 22 8 - 25 mg/dL [facility] Glucose 104 70 - 199 mg/dL [facility] Comment: Interpretive Data Fasting glucose >/= [...] 2017. Creatinine 0.83 0.60 - 1.10 mg/dL [facility] Calcium 9.7 8.5 - 10.3 mg/dL [facility] Chloride 96(L) 97 - 110 mmol/L [facility] Albumin 4.3 3.5 - 5.0 g/dL [facility] AST 21 10 - 45 Units/L [facility] ALT 17 7 - 45 Units/L [facility] Alk phos 99 40 - 130 Units/L [facility] Bilirubin, total 0.4 0.1 - 1.2 mg/dL [facility] Protein, pl 7.6 6.5 - 8.5 g/dL [facility] Anion gap 12 2 - 15 mmol/L [facility] Blood specimen (specimen) 08/11/2017 11:45 AM CDT 08/11/2017 11:46 AM CDT Narrative [facility] - 08/11/2017 12:19 PM CDT us Marianne Walker GAME DESIGNER LAB BLOOD ORDERABLES Final Result Performing Organization Address [facility] Co de Phone Number [facility] [place] [address] * CBC with auto differential (08/11/2017 11:45 AM CDT) WBC 7.8 3.8 - 9.9 K/cumm [facility] RBC 4.54 3.90 - 5.20 M/cumm [facility] Hgb 12.9 11.9 - 15.5 g/dL [facility] Hct 37.6 35.6 - 45.5 % [facility] MCV 82.8 81.3 - 96.4 fL [facility] MCH 28.4 27.1 - 33.3 pg [facility] MCHC 34.3 32.3 - 35.7 g/dL [facility] RDW CV 13.7 11.1 - 14.9 % [facility] RDW SD 41.1 35.7 - 48.1 fL [facility] Plt 260 150 - 400 K/cumm [facility] MPV 9.6 9.1 - 12.3 fL [facility] NRBC abs 0.00 0.00 - 0.01 K/cumm [facility] Blood specimen (specimen) 08/11/2017 11:45 AM CDT 08/11/2017 11:46 AM CDT [facility] - 08/11/2017 11:48 AM CDT us Marianne Walker GAME DESIGNER LAB BLOOD ORDERABLES Final Result Performing Organization Address City/[facility]/ZIP Co de Phone Number [facility] [place] [address] documented in this encounter Visit Diagnoses Diagnosis Malignant neoplasm of upper-outer quadrant of right female breast, unspecified estrogen receptor status (HCC)- Primary Malignant neoplasm of upper-outer quadrant of right female breast, unspecified estrogen receptor status (HCC) documented in this encounter Care Teams Working Supervisor Relationship Specialty Start Date End Date Nevaeh Alves MD [address] [place], [place] [id number] PCP - General 05/13/16 05/11/22 Mono Davis MD [address] [place] [address] PCP - General Family Medicine 05/12/22 09/09/24 Nat Farrar MD [address] [place] [address] [place] [address] PCP - General Family Practice 09/10/24 documented as of this encounter
--- OUTSIDE RECORDS SUMMARY | 2025-01-11 10:15 | XMS_ITS | Clinical Summary ---
Author Organization [facility] al Address [address] [place] [address] Care Team Providers Care Pillar Worker Name Role Phone Nat Farrar MD Primary [...] on file Legal Sex Female 8:41 AM WEB PRODUCTION DESIGNER Gender Identity Not on file Sexual Orientation [...] Read Routine (OP Routine) 02/09/2021 10:33 AM WEB PRODUCTION DESIGNER Malignant neoplasm of upper-outer quadrant of right [...] 1 or 2 Site (02/09/2021 10:33 AM WEB PRODUCTION DESIGNER) Anatomical Region Laterality Modality Body N/A Radiographic Jayde ging Narrative 02/10/2021 2:51 PM WEB PRODUCTION DESIGNER Patient Name: Ankush Crespo Date of : 1945 Date of scan: 02/09/2021 Bone mineral density was performed on a Holo[employer] System Discovery Densitometer. Based on machine cross-calibration and [...] by the International Society of Clinical Densitometry. [id number] Courtney Gibson MD IM DXA PROCEDURES Final Result * Serum Hepatitis panel (08/29/2012 10:25 AM CDT) HBV surface ag Negative NEG HISTO RICAL RESULTS HCV ab Negative NEG HISTORICAL RESULTS Comment: Interpretive Data If confirmation is required, call Laboratory Customer Service to request sample to be sent to [facility] for Hepatitis C Virus (HCV) RNA Detection and Quantitation by Real-Time Reverse Regional Director Of Admissions-PCR (RT-PCR). Current interpretive data was last revised [...] Recently Relevant to Health Maintenance Insurance MEDICARE [facility] MEDICARE [place] MEDICARE [place] Care Teams Pillar Worker Relationship Specialty Start Date End Date Nat Farrar MD [address] [place] [address] [address] [place] [address] PCP - General Family Practice 09/10/24
[2025-01-11 11:48] LABS: Alanine Aminotransferase 25 U/L (6-35); Albumin Level 4.1 g/dL (3.5-5.1); Alkaline Phosphatase 88 U/L (38-126); Anion Gap 7 mmol/L (4-12); Aspartate Amino Transferase 46 U/L (14-36); Bilirubin,Total 0.9 mg/dL (0.2-1.3); Blood Urea Nitrogen 21 mg/dL (7-17); Calcium 9.2 mg/dL (8.4-10.2); Carbon Dioxide 30 mmol/L (22-30); Chloride 99 mmol/L (98-107); Estimated Glomerular Filt Rate 53; Glucose 115 mg/dL (65-110); Potassium 4.3 mmol/L (3.4-5.0); Sodium 136 mmol/L (137-145); Total Protein 6.9 g/dL (6.3-8.2)
== END 2025-01-11 10:13 | disposition home or self-care (01) ==
LOC: ANHGOSHLAB 10:12
PROVIDERS: PCP Family Medicine; Visit Provider Family Medicine
DX: R60.9 Edema, unspecified (principal); I10 Essential (primary) hypertension; Z79.899 Other long term (current) drug therapy
CPT/HCPCS: 36415; 80053